=== PATIENT | female | born 1945 | race Caucasian/White ===

== ENCOUNTER 2023-07-19 20:38 | Inpatient (IN) | payer OTHER, SELFPAY ==
[2023-07-20 00:33] VITALS: BMI 27.4
--- NOTE | 2023-07-20 02:33 | PC.ADMIT ---
A white, Bulgarian-speaking female, aged 77 years was [facility] to [facility] at 205 following referral from [facility] and [facility]. Pt is unknown to [facility], but has a history of admissions at [place] [id number], multiple admissions, most recent in 03/[address] [facility] in 2019. Pt reported a long history of depression with past suicide attempts and inpatient psychiatric admissions. Pt presented at [facility] on 07/17/23 after being transferred from [facility]. Pt presented with increased SI and thoughts of . Pt stated I think abut all the time. My health issues and pain make it even worse. I just need help or else I will overdose on my pills. Pt is admitted with a diagnosis of depressive d/o and borderline personality d/o. Pt lives alone and at times has conflict with her adult children b/c feeling like I'm in the way or not important enough. Pt was cooperative and pleasant upon arriving, but had received medication for pain prior to transfer to [facility]. Pt climbed into bed not long after arrival and fell deeply asleep. Pt denied current SI/HI, and AVH. Pt appears anxious and depressed but was unable to rate. Skin check done upon arrival. Pt has healed surgical scars on lower back from surgery in past six months. Pt c/o back pain / upon arrival. MEIER was positive for THC and opioids. Pt reports using 1/2 THC gummy, 1-2 drinks Etoh, and OTC Benadryl to help with insomnia and frequent awakening. Pt is positive for opioids b/c was given morphine prior to transport from [place] to [facility]. Medical issues include: chronic left knee pain, chronic back pain and recent history of surgery, Grave's disease, intention tremor, neurogenic claudication, Parkinson's disease, TBI/ post-concusion syndrome, REM sleep d/o, restless leg syndrome, sciatica, syncope, urinary incontinence, benign paroxysmal vertigo. Pt is a high fall risk, but ambulates w/o device. [id number] done, admission orders obtained, initial treatment plan is done, but needs to be signed. Pt still needs to do safety tool and sign.
[2023-07-20 08:56] VITALS: BP 128/90; PULSE 69; RESP 16; TEMP 36.2; O2SAT 98
[2023-07-20 09:06] LABS: Estimated Average Glucose 111 mg/dL; Hemoglobin A1c % 5.5 % (<6.0)
[2023-07-20 09:28] LABS: Alanine Aminotransferase 10 U/L (0-31); Albumin Level 4.1 g/dL (3.5-5.0); Alkaline Phosphatase 125 U/L (39-117); Anion Gap 12 (12-20); Aspartate Amino Transferase 18 U/L (5-31); Bilirubin Total 0.6 mg/dL (0.0-1.0); Blood Urea Nitrogen 14 mg/dL (9-16); Calcium 9.8 mg/dL (8.4-10.2); Carbon Dioxide 28 mmol/L (22-29); Chloride 107 mmol/L (96-108); Cholesterol 262 mg/dL (<200); Creatinine Clr Calc Pharmacy 56.2; Estimated Glomerular Filt Rate > 60; Glucose Fasting 90 mg/dL (60-99); HDL Cholesterol 52 mg/dL (>40); LDL Cholesterol Calculated 164 mg/dL (<100); Potassium 4.1 mmol/L (3.3-5.1); Sodium 143 mmol/L (135-145); Triglycerides 231 mg/dL (<150)
[2023-07-20 09:46] LABS: Thyroid Stimulating Hormone 1.72 uIU/mL (0.32-4.0)
[2023-07-20 09:58] LABS: Folate 8.6 ng/mL (> or = 4.0); Vitamin B12 294 pg/mL (200-900)
--- NOTE | 2023-07-20 12:39 | P.CONHOSP_ITS ---
History of Present Illness Data of Consult Service Date: 07/20/23 Primary Care Provider: Unknown Physician HPI Reason for consult: Admission H&P Pt is a 77-year-old female with a PMH significant for?chronic lower back and hip pain, hx of squamous cell carcinoma, Parkinsonism, MDD, and borderline personality disorder who is admitted to M5 psychiatry unit for increasing depression with SI with a plan to overdose on medication. Medical consult for admission H&P. Patient complains of severe left hip pain since having had lower back surgery in February for chronic lower back pain. Pt is unsure whether hip pain resulted from surgery or her lower back pain masked her hip pain. Claims she has spoken to her surgeon about these symptoms but was told there was nothing they could do about it. Has also seen her PCP and reports has an appointment to see an orthopedist on 08/01/2023. Patient is emotionally labile, and begins crying when told such hip pain is usually treated outpatient. She states she was told by her psychiatrist that she would be treated in the hospital for her?hip pain which is why she is here. The patient then shuts down after this and no longer participates in HPI/ROS, stating she feels ?completely fine and healthy.? Labs reviewed, significant for elevated triglycerides, total cholesterol, and LDL. Review of Systems 2 Review of Systems: Chronic left hip pain PMFSH Social History Household Members: None Housing: Unknown / Unable to assess Do you presently have visiting nurse or other home services: No Patient Tobacco Use Status: Never used Tobacco Smoked in Last 30 Days: No e-Cigarette/Vaping Use: Never Used Patient Interested in Nicotine Replacement: No (N/A) Patient Given Instructions on How to Stop Smoking: No (N/A) Use of substances other than those prescribed or required for medical reasons: Yes Substance Use Type: Marijuana Substance Use Frequency: Daily Last Used Substance: Unknown Currently Displaying Signs/Symptoms of Drug Intoxication Withdrawal: No Do you feel safe in your current relationship?: No Current Relationship Spiritual Healthcare Practices: Unknown; pt unable to participate due to mental status. Roman [employer] Healthcare Practices: Unknown; pt unable to participate due to mental status. Cultural Healthcare Practices: Unknown; pt unable to participate due to mental status. Advance Directives: Yes Advance Directives Information Provided: No Advance Directives on File: No Do you have thoughts of harming others: None Do you have a plan to hurt others: No Plan Recently lost weight without trying: Unsure How much weight loss: Unsure Nutrition Risks: No Nutritional Risk Patient : No : No Poor oral hygiene: No Meds Allergies Allergy/AdvReac Type Severity Reaction Status Date / Time Sulfa (Sulfonamide Allergy Intermediate Unknown Verified 07/20/23 00:30 Antibiotics) imipramine Allergy Unknown Verified 07/20/23 00:32 lithium AdvReac Mild Unknown Verified 07/20/23 00:32 Active Medications: Current Medications Acetaminophen (Acetaminophen 325 Mg Tablet) 650 mg PO Q6H PRN PRN Reason: Headache/Pain Mild Scale (1-3) Al Hydroxide/Mg Hydroxide (Magnesium Hydrox/Alum Hydrox 30 Ml Oral.Susp) 30 ml PO Q6H PRN PRN Reason: Heartburn/Nausea Hydroxyzine HCl (Hydroxyzine Hcl 25 Mg Tablet) 25 mg PO Q6H PRN PRN Reason: Anxiety Magnesium Hydroxide (Milk Of Magnesia 30 Ml Oral.Susp) 30 ml PO DAILY PRN PRN Reason: Constipation Trazodone HCl (Trazodone Hcl 50 Mg Tablet) 50 mg PO BEDTIME PRN PRN Reason: Insomnia Physical Exam 2 Vital Signs and Narrative: Vital Signs: Last Vital Signs Temp 97.1 F 07/20/23 08:56 Pulse 69 07/20/23 08:56 Resp 16 07/20/23 08:56 BP 128/90 H 07/20/23 08:56 Pulse Ox 98 07/20/23 08:56 O2 Del Method Room Air 07/20/23 08:56 BMI result Body Mass Index 27.4 Constitutional: Alert, in no acute distress. Mental Status: Oriented to person, place and time. Eyes: Pupils are equal, round, and reactive to light. Ear, Nose, and Throat: Oropharynx clear, mucous membranes moist. Ears and nose without deformities. Trachea midline. Respiratory: Clear to auscultation bilaterally. No wheezing, rales, or rhonchi. Cardiovascular: S1, S2 regular. No murmurs, rubs, or gallops. Gastrointestinal: Abdomen soft, non-tender, non-distended. Normal bowel sounds. Neurologic: Cranial nerves II-XII are grossly intact bilaterally. No focal neurological deficits. Moves all extremities spontaneously. Skin: No rashes or lesions noted. Musculoskeletal: Left hip tender to palpation. Slightly reduced active ROM secondary to pain. Lower back nontender to palpation. Extremities: No edema. Psychiatric: Emotionally labile. Results Labs 07/20/23 08:04 Labs: Laboratory Results - last 24 hr 07/20/23 08:04 Anion Gap 12 Estim Creat Clear Calc 56.2 Estimated GFR > 60 Fasting Glucose 90 Estimat Average Glucose 111 Hemoglobin A1c % 5.5 Calcium 9.8 Total Bilirubin 0.6 AST 18 ALT 10 Alkaline Phosphatase 125 H Total Protein 7.0 Albumin 4.1 Triglycerides 231 H Cholesterol 262 H LDL Cholesterol, Calc 164 H HDL Cholesterol 52 Vitamin B12 294 Folate 8.6 TSH 1.72 Assessment and Plan (1) Medical clearance for psychiatric admission: Status: Acute Plan Pt is a 77-year-old female with a PMH significant for?chronic lower back and hip pain, hx of squamous cell carcinoma, Parkinsonism, MDD, and borderline personality disorder who is admitted to [facility] psychiatry unit for increasing depression with SI with a plan to overdose on medication. Medical consult for admission H&P. Patient complains of severe left hip pain since having had lower back surgery in February for chronic lower back pain. Mood disorder Plan as per Psychiatry Chronic back and hip pain Patient complaining of left hip pain since back surgery in February Patient reports having spoken to both her surgeon and PCP, has ortho appointment on 08/01/2023 Will treat with naproxen 500 mg b.i.d. p.r.n. and Flexeril 5 mg p.o. t.i.d. p.r.n. Needs to follow-up outpatient with orthopedics Parkinsonism Patient reports being diagnosed with Parkinson's disease sometime ago Believes she was miss diagnosed and is no longer on any meds Pt otherwise does not appear to be on any home prescription medication. Thank you for allowing us to participate in the care of this patient. Signing off at this time. Please let us know if there are any acute complaints or questions.
--- NOTE | 2023-07-20 13:03 | P.HPPS_ITS ---
HPI Date of Service: 07/20/23 Chief Complaint: Major Depressive D/O, Borderline Personality D/O Sources of Information: patient interviewed, chart reviewed and crisis/core team assessment reviewed HPI Subjective Notes: Conditional Voluntary Healthcare Proxy: No Guardianship: No Medical Problems Affecting Mental Status: No Narrative: 77 yo female, sent in transfer from [facility] for SI, thoughts of dying, L Hip Pain. Pt reportedly lives alone and has conflict with her children. There is a long history of depression, as well as suicide attempts. Met with pt and Daryl MEHTA. Pt is angry and upset as she just had her physical exam by hospitalist team who told her they would not be addressing her hip pain. Asks to discharge this evening. When asked to explain further the issues she is struggling with so we may interviene appropriately, pt commented that she was not satisfied with this teletypewriter installer's volume of voice x 2. When this teletypewriter installer increased volume, pt was accusatory of being yelled at. She shared several instances of not being able to hear others when they talked and negative responses from friends, peers, professionals when she confronted them. This teletypewriter installer explained we were attempting to hear her issue with pain in an attempt to address this. She appears to have merged a previous interaction in another facility with our meeting today. She asked for a new provider which we will follow up with on Sunday. Pt reports severe hip pain- lateral, buttock area that radiates accross her back and she cannot walk well as her thighs ache. Consult via text to orthopedics- who suggest consult request from neuro spine, Sigifredo MARQUEZ which was ordered. Prior to consult, pain mgt addressed. Oxycodone and Flexeril are ordered. Pt reports she has taken both before with efficacy and tolerance. Pt reports several medication trials. Discussed a cymbalta low dose trial which she has taken and tolerated before for help with pain mgt. She is agreeable. Pt reports she has signed a three day notice on admission, however, one is not found in her record. Past Psychiatric History: IP: Mike PETERSON, [facility]- last admit 02/2023 [place] 2018 OP: Dr. Amor for psychotherapy and psychopharmacology-no TERA signed Trials: Several Valium, Ativan have helped. 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 Supports: son Eligio, son-in-law Jovanni Substance History: Denies Trauma History: Affirms Diagnostics Vital Signs (24Hr): Vital Signs - 24 hr 07/20/23 08:56 Temperature 97.1 F Pulse Rate 69 Respiratory Rate 16 Blood Pressure 128/90 H Pulse Oximetry 98 Oxygen Delivery Method Room Air BMI result Body Mass Index 27.4 Labs 07/20/23 08:04 Labs: Laboratory Results - last 48 hr 07/20/23 08:04 Sodium 143 Potassium 4.1 Chloride 107 Carbon Dioxide 28 Anion Gap 12 BUN 14 Creatinine 0.77 Estim Creat Clear Calc 56.2 Estimated GFR > 60 Fasting Glucose 90 Estimat Average Glucose 111 Hemoglobin A1c % 5.5 Calcium 9.8 Total Bilirubin 0.6 AST 18 ALT 10 Alkaline Phosphatase 125 H Total Protein 7.0 Albumin 4.1 Triglycerides 231 H Cholesterol 262 H LDL Cholesterol, Calc 164 H HDL Cholesterol 52 Vitamin B12 294 Folate 8.6 TSH 1.72 Meds/Allergies Allergies Allergies Allergy/AdvReac Type Severity Reaction Status Date / Time Sulfa (Sulfonamide Allergy Intermediate Unknown Verified 07/20/23 00:30 Antibiotics) imipramine Allergy Unknown Verified 07/20/23 00:32 lithium AdvReac Mild Unknown Verified 07/20/23 00:32 Mental Status Exam Mental Status Exam Patient Appearance: Appropriate Patient Orientation: Person, Place, Time and Situation Level of Consciousness: Awake and Alert Patient Behavior: Guarded, Talkative, Suspicious, Aggressive, Resistive to Care, Combative (verbally), Fatigued, Distractible, Good Eye Contact and Uncooperative Mood Description: Suspicious, Depressed, Hostile, Angry and Apprehensive Affect Description: Hostile Patient Cognition Impaired: No Ability to Follow Directions: Fair Speech Pattern: Spontaneous Speech Memory Description: Episodic Impaired Hallucinations: None Delusions: Not Present Perceptual Disturbances: Depersonalization and Derealization Thought Process: Distracted and Rumination Thought Content: positive for Circumstantial, positive for Perseveration and positive for Suicidal Ideation Depressive Symptoms: Increased Irritability and Thoughts of /Suicide Abnormal Motor Activity Signs and Symptoms: Agitation Judgement: Fair Assessment & Plan Assessment & Plan (1) PTSD (post-traumatic stress disorder): Status: Acute Code(s): F43.10 - Post-traumatic stress disorder, unspecified (2) Recurrent major depression: Status: Acute Code(s): F33.9 - Major depressive disorder, recurrent, unspecified (3) Borderline personality disorder: Status: Acute Code(s): F60.3 - Borderline personality disorder (4) Left hip pain: Status: Acute Code(s): M25.552 - Pain in left hip Plan 77 yo female, history of PTSD, Recurrent Major Depression, Borderline Personality, L Hip Pain, sent in transfer from [facility] for evaluation and management of suicidality, depression and pain. Plan: Collateral contact-pt has not signed TERA at this time with family and providers. L Hip Pain Mgt -Flexeril, Oxycodone prn until consultation gives further guidance -Consult request from neuro spine, Sigifredo Coello per recommendation of orthopedics -Falls precautions Cymbalta 20 mg daily (pain focus) Pt believes she signed a three day notice on admission, however this is not included in her documents Encourage milieu participation. Pt requests provider change-will transfer to Dr. Harris on 07/23 Patient educated on: therapeutic strategies and medical condition Informed Consent: further education needed Reason for continued inpatient stay Substantial Risk for: harm to self, inability to function, rapid decompensation and med/psych decompensation Statement Statement: I have reviewed the history and physical and performed a pertinent examination on my patient. No changes have occurred unless specified. If the History and Physical was not performed prior to admission, the Hospitalist's service will be consulted for completing the admission physical. Time Spent With Patient Time: Total time managing care of this patient today ____ minutes.
[2023-07-20] MEDS: Cyclobenzaprine HCl 10 MG TABLET PO (17:20)
[2023-07-20 18:00] VITALS: BP 129/68; PULSE 71; TEMP 35.6; O2SAT 98
[2023-07-20] MEDS: traZODone HCL 50 MG TABLET PO (21:52)
[2023-07-20] MEDS: oxyCODONE HCl Immed Release 5 MG TABLET PO (21:53)
--- NOTE | 2023-07-21 07:51 | P.PNPSI_ITS ---
Subjective Subjective Date of Service: 07/21/23 Reason For Visit: Major Depressive D/O, Borderline Personality D/O Subjective Notes: Mckinely Warning and 3 Day Interim History: I'm having a tough time. Regrets coming here at the advice of her outpatient psychiatrist. Has multiple complaints about the unit. Wants to get numbers from her phone. Feels that checks are not done properly, states she didn't get promised orthopedic eval. Signed a 3 day notice. Some sleep disturbance due to hip pain. Medication Compliance: Yes Side effects from medications: No Attending Groups: No Review of Systems Acute medical concerns: No Medical Review of Systems: unchanged Mental Status Exam Mental Status Exam Patient Appearance: Well Grooomed Patient Orientation: Person, Place, Time and Situation Level of Consciousness: Awake Patient Behavior: Appropriate Mood Description: Depressed ( not good ) Affect Description: Depressed Patient Cognition Impaired: No Ability to Follow Directions: Good Speech Pattern: Clear and Spontaneous Speech Memory Description: Intact Hallucinations: None Delusions: Not Present Thought Process: Intact Thought Content: positive for Suicidal Ideation (evasive about plan, states she has SI chronically. States she will not harm self here in the hospital) Depressive Symptoms: Difficulty Sleeping, Muscle Pain and Thoughts of /Suicide Judgement: Fair Diagnostics Vital Signs (24Hr): Vital Signs - 24 hr 07/20/23 08:56 07/20/23 18:00 Temperature 97.1 F 96.1 F L Pulse Rate 69 71 Respiratory Rate 16 Blood Pressure 128/90 H 129/68 Pulse Oximetry 98 98 Oxygen Delivery Method Room Air Room Air BMI result Body Mass Index 27.4 Labs 07/20/23 08:04 Labs: Laboratory Results - last 48 hr 07/20/23 08:04 Sodium 143 Potassium 4.1 Chloride 107 Carbon Dioxide 28 Anion Gap 12 BUN 14 Creatinine 0.77 Estim Creat Clear Calc 56.2 Estimated GFR > 60 Fasting Glucose 90 Estimat Average Glucose 111 Hemoglobin A1c % 5.5 Calcium 9.8 Total Bilirubin 0.6 AST 18 ALT 10 Alkaline Phosphatase 125 H Total Protein 7.0 Albumin 4.1 Triglycerides 231 H Cholesterol 262 H LDL Cholesterol, Calc 164 H HDL Cholesterol 52 Vitamin B12 294 Folate 8.6 TSH 1.72 Medications Medications Current Medications Acetaminophen (Acetaminophen 325 Mg Tablet) 650 mg PO Q6H PRN PRN Reason: Headache/Pain Mild Scale (1-3) Al Hydroxide/Mg Hydroxide (Magnesium Hydrox/Alum Hydrox 30 Ml Oral.Susp) 30 ml PO Q6H PRN PRN Reason: Heartburn/Nausea Cyclobenzaprine HCl (Cyclobenzaprine Hcl 5 Mg Tablet) 5 mg PO TID PRN PRN Reason: Hip pain Duloxetine HCl (Duloxetine Hcl 20 Mg Capsule.Dr) 20 mg PO DAILY MIMI Hydroxyzine HCl (Hydroxyzine Hcl 25 Mg Tablet) 25 mg PO Q6H PRN PRN Reason: Anxiety Magnesium Hydroxide (Milk Of Magnesia 30 Ml Oral.Susp) 30 ml PO DAILY PRN PRN Reason: Constipation Naproxen (Naproxen 500 Mg Tablet) 500 mg PO BIDWM PRN PRN Reason: Pain, Moderate(Pain Scale 4-6) Stop: 08/03/23 15:44 Trazodone HCl (Trazodone Hcl 50 Mg Tablet) 50 mg PO BEDTIME PRN PRN Reason: Insomnia Last Admin: 07/20/23 21:52 Dose: 50 mg Allergies Allergies Allergy/AdvReac Type Severity Reaction Status Date / Time Sulfa (Sulfonamide Allergy Intermediate Unknown Verified 07/20/23 00:30 Antibiotics) imipramine Allergy Unknown Verified 07/20/23 00:32 lithium AdvReac Mild Unknown Verified 07/20/23 00:32 Assessment & Plan Assessment & Plan (1) PTSD (post-traumatic stress disorder): Status: Acute Code(s): F43.10 - Post-traumatic stress disorder, unspecified Assessment and Plan: monitor for symptoms (2) Recurrent major depression: Status: Acute Code(s): F33.9 - Major depressive disorder, recurrent, unspecified Assessment and Plan: cymbalta just started, increase as tolerated (3) Borderline personality disorder: Status: Acute Code(s): F60.3 - Borderline personality disorder Assessment and Plan: Clarify expectations, clear boundaries and follow through on plans. (4) Left hip pain: Status: Acute Code(s): M25.552 - Pain in left hip Assessment and Plan: Flexeril and tylenol, consider lidocaine patch (5) Medical clearance for psychiatric admission: Status: Acute Code(s): Z00.8 - Encounter for other general examination Plan 77 yo female, history of PTSD, Recurrent Major Depression, Borderline Personality, L Hip Pain, sent in transfer from [facility] for evaluation and management of suicidality, depression and pain. Plan: Collateral contact-pt has not signed TERA at this time with family and providers. L Hip Pain Mgt -Flexeril, Oxycodone prn until consultation gives further guidance -Consult request from neuro spine, Sigifredo Coello per recommendation of orthopedics -Falls precautions Cymbalta 20 mg daily (pain focus) Pt believes she signed a three day notice on admission, however this is not included in her documents Encourage milieu participation. Pt requests provider change-will transfer to Dr. Harris on 07/23 Reason for continued inpatient stay Substantial Risk for: harm to self Time Spent With Patient Time: Total time managing care of this patient today ____ minutes.
[2023-07-21 07:55] VITALS: BP 137/78; PULSE 66; RESP 18; TEMP 35.9; O2SAT 100
[2023-07-21] MEDS: hydrOXYzine HCL 25 MG TABLET PO (09:19)
[2023-07-21] MEDS: DULoxetine HCl 20 MG CAPSULE.DR PO (09:19)
[2023-07-21] MEDS: Cyclobenzaprine HCl 5 MG TABLET PO (09:20)
[2023-07-21] MEDS: Milk of Magnesia 30 ML ORAL.SUSP PO (09:23)
[2023-07-21] MEDS: Magnesium Hydrox/Alum Hydrox 30 ML ORAL.SUSP PO (14:43)
[2023-07-21 16:55] VITALS: BP 135/82; PULSE 70; RESP 16; TEMP 36.1; O2SAT 96
[2023-07-22 07:55] VITALS: BP 114/67; PULSE 63; RESP 18; TEMP 36.3; O2SAT 97
[2023-07-22] MEDS: NaPROXEN 500 MG TABLET PO (08:40)
[2023-07-22] MEDS: Cyclobenzaprine HCl 5 MG TABLET PO ×2 (08:40→20:47)
[2023-07-22] MEDS: DULoxetine HCl 20 MG CAPSULE.DR PO (08:41)
[2023-07-22] MEDS: hydrOXYzine HCL 25 MG TABLET PO ×2 (08:41→20:48)
[2023-07-22] MEDS: Milk of Magnesia 30 ML ORAL.SUSP PO (08:57)
--- NOTE | 2023-07-22 09:23 | HO.PSYCHPN ---
Subjective Subjective Date of Service: 07/22/23 Reason For Visit: Major Depressive D/O, Borderline Personality D/O Subjective Notes: Conditional Voluntary Guardianship: No Medical Problems Affecting Mental Status: No Interim History: Sitting in common areas but not interacting much. Reports eating and sleeping OK. Hearing is a barrier to interactions. Complaining of constipation. Medication Compliance: Yes Side effects from medications: No Attending Groups: Intermittent Review of Systems Acute medical concerns: No Medical Review of Systems: unchanged Mental Status Exam Mental Status Exam Patient Appearance: Well Grooomed (in hospital garb) Patient Orientation: Person, Place, Time and Situation Level of Consciousness: Alert Patient Behavior: Appropriate Mood Description: Calm Affect Description: Cheerful Patient Cognition Impaired: No Ability to Follow Directions: Good Speech Pattern: Clear Memory Description: Intact Hallucinations: None Delusions: Not Present Thought Process: Linear Thought Content: positive for Suicidal Ideation (chronic SI.. No current intent or plan) Depressive Symptoms: Increased Anxiety and Difficulty Sleeping Judgement: Fair Diagnostics Vital Signs (24Hr): Vital Signs - 24 hr 07/21/23 16:55 07/22/23 07:55 Temperature 96.9 F 97.3 F Pulse Rate 70 63 Respiratory Rate 16 18 Blood Pressure 135/82 114/67 Pulse Oximetry 96 97 Oxygen Delivery Method Room Air Room Air BMI result Body Mass Index 27.4 Labs 07/20/23 08:04 Medications Medications Current Medications Acetaminophen (Acetaminophen 325 Mg Tablet) 650 mg PO Q6H PRN PRN Reason: Headache/Pain Mild Scale (1-3) Al Hydroxide/Mg Hydroxide (Magnesium Hydrox/Alum Hydrox 30 Ml Oral.Susp) 30 ml PO Q6H PRN PRN Reason: Heartburn/Nausea Last Admin: 07/21/23 14:43 Dose: 30 ml Cyclobenzaprine HCl (Cyclobenzaprine Hcl 5 Mg Tablet) 5 mg PO TID PRN PRN Reason: Hip pain Last Admin: 07/22/23 08:40 Dose: 5 mg Duloxetine HCl (Duloxetine Hcl 20 Mg Capsule.Dr) 20 mg PO DAILY MIMI Last Admin: 07/22/23 08:41 Dose: 20 mg Hydroxyzine HCl (Hydroxyzine Hcl 25 Mg Tablet) 25 mg PO Q6H PRN PRN Reason: Anxiety Last Admin: 07/22/23 08:41 Dose: 25 mg Magnesium Hydroxide (Milk Of Magnesia 30 Ml Oral.Susp) 30 ml PO DAILY PRN PRN Reason: Constipation Last Admin: 07/22/23 08:57 Dose: 30 ml Naproxen (Naproxen 500 Mg Tablet) 500 mg PO BIDWM PRN PRN Reason: Pain, Moderate(Pain Scale 4-6) Stop: 08/03/23 15:44 Last Admin: 07/22/23 08:40 Dose: 500 mg Trazodone HCl (Trazodone Hcl 50 Mg Tablet) 50 mg PO BEDTIME PRN PRN Reason: Insomnia Last Admin: 07/20/23 21:52 Dose: 50 mg Allergies Allergies Allergy/AdvReac Type Severity Reaction Status Date / Time Sulfa (Sulfonamide Allergy Intermediate Unknown Verified 07/20/23 00:30 Antibiotics) imipramine Allergy Unknown Verified 07/20/23 00:32 lithium AdvReac Mild Unknown Verified 07/20/23 00:32 Assessment & Plan Assessment & Plan (1) PTSD (post-traumatic stress disorder): Status: Acute Code(s): F43.10 - Post-traumatic stress disorder, unspecified Assessment and Plan: monitor for symptoms (2) Recurrent major depression: Status: Acute Code(s): F33.9 - Major depressive disorder, recurrent, unspecified Assessment and Plan: cymbalta just started, increase as tolerated (3) Borderline personality disorder: Status: Acute Code(s): F60.3 - Borderline personality disorder Assessment and Plan: Clarify expectations, clear boundaries and follow through on plans. (4) Left hip pain: Status: Acute Code(s): M25.552 - Pain in left hip Assessment and Plan: Flexeril and tylenol, consider lidocaine patch (5) Medical clearance for psychiatric admission: Status: Acute Code(s): Z00.8 - Encounter for other general examination Plan 77 yo female, history of PTSD, Recurrent Major Depression, Borderline Personality, L Hip Pain, sent in transfer from [facility] for evaluation and management of suicidality, depression and pain. Plan: Collateral contact-pt has not signed TERA at this time with family and providers. L Hip Pain Mgt -Flexeril, Oxycodone prn until consultation gives further guidance -Consult request from neuro spine, Sigifredo Coello per recommendation of orthopedics -Falls precautions Cymbalta 20 mg daily (pain focus) Pt believes she signed a three day notice on admission, however this is not included in her documents Encourage milieu participation. Pt requests provider change-will transfer to Dr. Harris on 07/23 07/22: Add colace. Cymbalta just started, increase as tolerated Reason for continued inpatient stay Substantial Risk for: harm to self Time Spent With Patient Time: Total time managing care of this patient today ____ minutes.
[2023-07-22] MEDS: Docusate Sodium 100 MG CAPSULE PO ×2 (12:08→20:48)
[2023-07-22 18:00] VITALS: BP 147/67; PULSE 74; RESP 16; TEMP 36; O2SAT 98
[2023-07-23 08:20] VITALS: BP 133/70; PULSE 64; RESP 18; TEMP 36.1; O2SAT 98
[2023-07-23] MEDS: Cyclobenzaprine HCl 5 MG TABLET PO (08:29)
[2023-07-23] MEDS: hydrOXYzine HCL 25 MG TABLET PO (08:29)
[2023-07-23] MEDS: DULoxetine HCl 20 MG CAPSULE.DR PO (08:29)
[2023-07-23] MEDS: Docusate Sodium 100 MG CAPSULE PO ×2 (08:30→21:45)
[2023-07-23] MEDS: NaPROXEN 500 MG TABLET PO (08:30)
--- NOTE | 2023-07-23 09:43 | P.PNPSI_ITS ---
Subjective Subjective Date of Service: 07/23/23 Reason For Visit: Major Depressive D/O, Borderline Personality D/O Interim History: met with patient; discussed with team Discussed history in detail, including recent events and patient's mood and chronic SI. She reports that she deals with suicidal ideation every day and has done so for over a decade. She says sometimes the SI gets more intense than others but this is what is like for her at baseline, despite many medication trials and it something that she has learned to live with and deal with on her own. She reports that she was really upset with herself for something she said to her daughter but denies that she was ever getting close to actually harming herself and that comments made in the emergency room were misconstrued. Patient discussed in detail her historically troubled relationship with her daughter. It remains difficult for her to accept that they have struggled to get along for such a long time but she says mostly she is growing to understand that that is just how some relationships go. She understands that it would cause tremendous emotional pain for her daughter, son were she to end her life and knows that despite chronic SI, she will not take her own life. Patient also shared about some of her other ways she is cope with her own stress, often living alone; she has hiked the [facility] [place] by herself, lived in [place] by herself, and until recently [place] for motorcycle and is able to disassemble and repair a motorcycle engine. 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 Patient is considering getting a camper and hitting it to her car and traveling the [place], camping as she goes. Patient discussed history of struggles with her chronic back pain. She had back/spinal surgery this past February which relieved lower back pain, however subsequently she developed bilateral hip pain which has been debilitating. There has been a back and forth between her PCP and a initial spinal surgeon; finally she got appointment with in [facility] for July 31. Patient says she feels that she can endure this chronic pain, something she has been dealing with for months, until this appointment. She is getting some relief from Flexeril and naproxen which were added this admission. Patient is on a 3 day notice. Initially she wanted to discharge but after discussion, feels it would be helpful to stay and see if instructional writer can help with medications that could help sleep. Diagnostics Vital Signs (24Hr): Vital Signs - 24 hr 07/22/23 18:00 07/23/23 08:20 Temperature 96.8 F 97.0 F Pulse Rate 74 64 Respiratory Rate 16 18 Blood Pressure 147/67 H 133/70 Pulse Oximetry 98 98 Oxygen Delivery Method Room Air BMI result Body Mass Index 27.4 Labs 07/20/23 08:04 Medications Medications Current Medications Acetaminophen (Acetaminophen 325 Mg Tablet) 650 mg PO Q6H PRN PRN Reason: Headache/Pain Mild Scale (1-3) Al Hydroxide/Mg Hydroxide (Magnesium Hydrox/Alum Hydrox 30 Ml Oral.Susp) 30 ml PO Q6H PRN PRN Reason: Heartburn/Nausea Last Admin: 07/21/23 14:43 Dose: 30 ml Cyclobenzaprine HCl (Cyclobenzaprine Hcl 5 Mg Tablet) 5 mg PO TID PRN PRN Reason: Hip pain Last Admin: 07/23/23 08:29 Dose: 5 mg Docusate Sodium (Docusate Sodium 100 Mg Capsule) 100 mg PO BID MIMI Last Admin: 07/23/23 08:30 Dose: 100 mg Duloxetine HCl (Duloxetine Hcl 20 Mg Capsule.Dr) 20 mg PO DAILY MIMI Last Admin: 07/23/23 08:29 Dose: 20 mg Hydroxyzine HCl (Hydroxyzine Hcl 25 Mg Tablet) 25 mg PO Q6H PRN PRN Reason: Anxiety Last Admin: 07/23/23 08:29 Dose: 25 mg Magnesium Hydroxide (Milk Of Magnesia 30 Ml Oral.Susp) 30 ml PO DAILY PRN PRN Reason: Constipation Last Admin: 07/22/23 08:57 Dose: 30 ml Naproxen (Naproxen 500 Mg Tablet) 500 mg PO BIDWM PRN PRN Reason: Pain, Moderate(Pain Scale 4-6) Stop: 08/03/23 15:44 Last Admin: 07/23/23 08:30 Dose: 500 mg Trazodone HCl (Trazodone Hcl 50 Mg Tablet) 50 mg PO BEDTIME PRN PRN Reason: Insomnia Last Admin: 07/20/23 21:52 Dose: 50 mg Allergies Allergies Allergy/AdvReac Type Severity Reaction Status Date / Time Sulfa (Sulfonamide Allergy Intermediate Unknown Verified 07/20/23 00:30 Antibiotics) imipramine Allergy Unknown Verified 07/20/23 00:32 lithium AdvReac Mild Unknown Verified 07/20/23 00:32 Assessment & Plan Assessment & Plan (1) Recurrent major depression: Qualifiers: Active/Remission status: currently active Major depression episode severity: severe Psychotic features: without psychotic features Qualified Code(s): F33.2 - Major depressive disorder, recurrent severe without psychotic features Status: Acute Code(s): F33.9 - Major depressive disorder, recurrent, unspecified Assessment and Plan: cymbalta just started, increase as tolerated (2) PTSD (post-traumatic stress disorder): Status: Acute Code(s): F43.10 - Post-traumatic stress disorder, unspecified Assessment and Plan: monitor for symptoms (3) Borderline personality disorder: Status: Acute Code(s): F60.3 - Borderline personality disorder Assessment and Plan: Clarify expectations, clear boundaries and follow through on plans. (4) Left hip pain: Status: Acute Code(s): M25.552 - Pain in left hip Assessment and Plan: Flexeril and tylenol, consider lidocaine patch (5) Medical clearance for psychiatric admission: Status: Acute Code(s): Z00.8 - Encounter for other general examination Plan 77 yo female, history of PTSD, Recurrent Major Depression, Borderline Personality, L Hip Pain, sent in transfer from [facility] for evaluation and management of suicidality, depression and pain. Hospital course: 07/22: Add colace. Cymbalta just started, increase as tolerated iscussed history in detail, including recent events and patient's mood and chronic SI. She reports that she deals with suicidal ideation every day and has done so for over a decade. She says sometimes the SI gets more intense than others but this is what is like for her at baseline, despite many medication trials and it something that she has learned to live with and deal with on her own. She reports that she was really upset with herself for something she said to her daughter but denies that she was ever getting close to actually harming herself and that comments made in the emergency room were misconstrued. Patient discussed in detail her historically troubled relationship with her daughter. It remains difficult for her to accept that they have struggled to get along for such a long time but she says mostly she is growing to understand that that is just how some relationships go. She understands that it would cause tremendous emotional pain for her daughter, son were she to end her life and knows that despite chronic SI, she will not take her own life. Patient also shared about some of her other ways she is cope with her own stress, often living alone; she has hiked the [facility] by herself, lived in [place] by herself, and until recently [place] for motorcycle and is able to disassemble and repair a motorcycle engine. 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 Patient is considering getting a camper and hitting it to her car and traveling the [place], camping as she goes. Patient discussed history of struggles with her chronic back pain. She had back/spinal surgery this past February which relieved lower back pain, however subsequently she developed bilateral hip pain which has been debilitating. There has been a back and forth between her PCP and a initial spinal surgeon; finally she got appointment with in [facility] for July 31. Patient says she feels that she can endure this chronic pain, something she has been dealing with for months, until this appointment. She is getting some relief from Flexeril and naproxen which were added this admission. Patient is on a 3 day notice. Initially she wanted to discharge but after discussion, feels it would be helpful to stay and see if instructional writer can help with medications that could help sleep. Discussed list of medications the patient has tried and they are numerous. Says her outpatient provider will not give her any benzodiazepines because of her age. Patient denies any history at all of drug or alcohol abuse. formulation: Patient with long history of refractory depression; per history, symptoms are complicated by personality disorder, PTSD. Patient has chronic daily SI and has for over a decade; has history psychiatric hospitalizations but not for years. Patient reports she has learned to cope with her chronic daily SI and would never hurt herself, citing love for her children as a protective factor. Plan: 3 day Cymbalta 20 mg daily Will schedule trazodone 50 mg q.h.s. with additional p.r.n. Continue naproxen p.r.n. Continue Flexeril p.r.n. cancel consults for otho/neuro; here in the hospital ortho and neuro are unable to see patient and recommend following up with outpatient provider. Pain is improved with Flexeril. While pain remains she reports tolerable and that she can endure it until her orthopedic appointment on 07/31 Patient educated on: diagnosis, medication risk/benefits, substance abuse, therapeutic strategies and medical condition Informed Consent: understands Reason for continued inpatient stay Substantial Risk for: stable for discharge Time Spent With Patient Time: Total time managing care of this patient today ____ minutes.
--- NOTE | 2023-07-23 11:20 | PM.EVENT ---
Documented by User: Ilana Sheppard APRN 07/23/23 12:26 Event Note Date of Service: 07/23/23 Event Note: Sigifredo MARQUEZ refused to consult with pt as recommended by Elsie Evans of orthopedics on 07/20. As a result, orthopedic consult has been re-sent. Response from Elsie Evans of orthopedics. They will not consult on this patient as they believe her hip pain is a spinal issue and this is not an area which they consult on. Pt is referred to her surgeon for further consultation. Time Spent With Patient Time: Total time managing care of this patient today ____ minutes. Documented by User: Dewey Garica MD 08/17/23 11:43 Event Note Date of Service: 08/17/23
[2023-07-23 17:08] VITALS: BP 141/81; PULSE 66; RESP 16; TEMP 36.7; O2SAT 96
[2023-07-23] MEDS: traZODone HCL 50 MG TABLET PO (21:45)
[2023-07-24 08:00] VITALS: BP 122/76; PULSE 60; TEMP 36.1; O2SAT 98
[2023-07-24] MEDS: Docusate Sodium 100 MG CAPSULE PO ×2 (08:22→22:31)
[2023-07-24] MEDS: DULoxetine HCl 20 MG CAPSULE.DR PO (08:22)
[2023-07-24] MEDS: Cyclobenzaprine HCl 5 MG TABLET PO ×2 (08:31→22:31)
--- NOTE | 2023-07-24 09:48 | P.PNPSI_ITS ---
Subjective Subjective Date of Service: 07/24/23 Reason For Visit: Major Depressive D/O, Borderline Personality D/O Interim History: met with patient; discussed with team Patient reports not sleeping that well despite trazodone; agrees to go back down to 50. Mood remains depressed but no SI. Anxiety a little better. Patient is considering retracting her 3 day notice, feeling there is benefit to remaining on the unit, getting help with sleep, getting time to process emotions. Mental Status Exam Mental Status Exam Narrative: Pt is alert and oriented; behavior is cooperative, friendly and calm; patient is in minimal to moderate distress due to chronic hip pain; dressed in casual attire with combed hair but adequate hygiene; mood is described as ok and affect congruent; eye contact appropriate; Speech is normal rate, volume and prosody and not pressured; no psychomotor agitation/retardation present; thought process is organized and goal directed; Thought content is on tx, relationships; otherwise pertinent to relevant topics and without any delusional content, paranoid ideations or grandiosity; intermittent passive SI which is chronic; no HI. There is no evidence of perceptual disturbance. Patients insight and judgment appear intact. Diagnostics Vital Signs (24Hr): Vital Signs - 24 hr 07/23/23 17:08 07/24/23 08:00 Temperature 98.0 F 97.0 F Pulse Rate 66 60 Respiratory Rate 16 Blood Pressure 141/81 H 122/76 Pulse Oximetry 96 98 Oxygen Delivery Method Room Air Room Air BMI result Body Mass Index 27.4 Labs 07/20/23 08:04 Medications Medications Current Medications Acetaminophen (Acetaminophen 325 Mg Tablet) 650 mg PO Q6H PRN PRN Reason: Headache/Pain Mild Scale (1-3) Al Hydroxide/Mg Hydroxide (Magnesium Hydrox/Alum Hydrox 30 Ml Oral.Susp) 30 ml PO Q6H PRN PRN Reason: Heartburn/Nausea Last Admin: 07/21/23 14:43 Dose: 30 ml Cyclobenzaprine HCl (Cyclobenzaprine Hcl 5 Mg Tablet) 5 mg PO TID PRN PRN Reason: Hip pain Last Admin: 07/24/23 08:31 Dose: 5 mg Docusate Sodium (Docusate Sodium 100 Mg Capsule) 100 mg PO BID [facility] Last Admin: 07/24/23 08:22 Dose: 100 mg Duloxetine HCl (Duloxetine Hcl 20 Mg Capsule.) 20 mg PO DAILY MIMI Last Admin: 07/24/23 08:22 Dose: 20 mg Magnesium Hydroxide (Milk Of Magnesia 30 Ml Oral.Susp) 30 ml PO DAILY PRN PRN Reason: Constipation Last Admin: 07/22/23 08:57 Dose: 30 ml Naproxen (Naproxen 500 Mg Tablet) 500 mg PO BIDWM PRN PRN Reason: Pain, Moderate(Pain Scale 4-6) Stop: 08/03/23 15:44 Last Admin: 07/23/23 08:30 Dose: 500 mg Trazodone HCl (Trazodone Hcl 50 Mg Tablet) 50 mg PO BEDTIME PRN PRN Reason: Insomnia Last Admin: 07/20/23 21:52 Dose: 50 mg Trazodone HCl (Trazodone Hcl 50 Mg Tablet) 50 mg PO BEDTIME MIMI Last Admin: 07/23/23 21:45 Dose: 50 mg Allergies Allergies Allergy/AdvReac Type Severity Reaction Status Date / Time Sulfa (Sulfonamide Allergy Intermediate Unknown Verified 07/20/23 00:30 Antibiotics) imipramine Allergy Unknown Verified 07/20/23 00:32 lithium AdvReac Mild Unknown Verified 07/20/23 00:32 Assessment & Plan Assessment & Plan (1) Recurrent major depression: Qualifiers: Active/Remission status: currently active Major depression episode severity: severe Psychotic features: without psychotic features Qualified Code(s): F33.2 - Major depressive disorder, recurrent severe without psychotic features Status: Acute Code(s): F33.9 - Major depressive disorder, recurrent, unspecified Assessment and Plan: cymbalta just started, increase as tolerated (2) PTSD (post-traumatic stress disorder): Status: Acute Code(s): F43.10 - Post-traumatic stress disorder, unspecified Assessment and Plan: monitor for symptoms (3) Borderline personality disorder: Status: Acute Code(s): F60.3 - Borderline personality disorder Assessment and Plan: Clarify expectations, clear boundaries and follow through on plans. (4) Left hip pain: Status: Acute Code(s): M25.552 - Pain in left hip Assessment and Plan: Flexeril and tylenol, consider lidocaine patch (5) Medical clearance for psychiatric admission: Status: Acute Code(s): Z00.8 - Encounter for other general examination Plan 77 yo female, history of PTSD, Recurrent Major Depression, Borderline Personality, L Hip Pain, sent in transfer from [facility] for evaluation and management of suicidality, depression and pain. Hospital course: 07/22: Add colace. Janembalta just started, increase as tolerated iscussed history in detail, including recent events and patient's mood and chronic SI. She reports that she deals with suicidal ideation every day and has done so for over a decade. She says sometimes the SI gets more intense than others but this is what is like for her at baseline, despite many medication trials and it something that she has learned to live with and deal with on her own. She reports that she was really upset with herself for something she said to her daughter but denies that she was ever getting close to actually harming herself and that comments made in the emergency room were misconstrued. -Patient discussed in detail her historically troubled relationship with her daughter. It remains difficult for her to accept that they have struggled to get along for such a long time but she says mostly she is growing to understand that that is just how some relationships go. She understands that it would cause tremendous emotional pain for her daughter, son were she to end her life and knows that despite chronic SI, she will not take her own life. Patient also shared about some of her other ways she is cope with her own stress, often living alone; she has hiked the [facility] [place] by herself, lived in [place] by herself, and until recently [place] for motorcycle and is able to disassemble and repair a motorcycle engine. 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 Patient is considering getting a camper and hitting it to her car and traveling the [place], camping as she goes. -Patient discussed history of struggles with her chronic back pain. She had back/spinal surgery this past February which relieved lower back pain, however subsequently she developed bilateral hip pain which has been debilitating. There has been a back and forth between her PCP and a initial spinal surgeon; finally she got appointment with in [facility] for July 31. Patient says she feels that she can endure this chronic pain, something she has been dealing with for months, until this appointment. She is getting some relief from Flexeril and naproxen which were added this admission. Patient is on a 3 day notice. Initially she wanted to discharge but after discussion, feels it would be helpful to stay and see if information writer can help with medications that could help sleep. Discussed list of medications the patient has tried and they are numerous. Says her outpatient provider will not give her any benzodiazepines because of her age. Patient denies any history at all of drug or alcohol abuse. 07/24Patient reports not sleeping that well despite trazodone; agrees to go back down to 50. Mood remains depressed but no SI. Anxiety a little better. Patient is considering retracting her 3 day notice, feeling there is benefit to remaining on the unit, getting help with sleep, getting time to process emotions. formulation: Patient with long history of refractory depression; per history, symptoms are complicated by personality disorder, PTSD. Patient has chronic daily SI and has for over a decade; has history psychiatric hospitalizations but not for years. Patient reports she has learned to cope with her chronic daily SI and would never hurt herself, citing love for her children as a protective factor. Plan: 3 day Cymbalta 20 mg daily trazodone 50 mg q.h.s. with additional p.r.n. Continue naproxen p.r.n. Continue Flexeril p.r.n. cancel consults for otho/neuro; here in the hospital ortho and neuro are unable to see patient and recommend following up with outpatient provider. Pain is improved with Flexeril. While pain remains she reports tolerable and that she can endure it until her orthopedic appointment on 07/31. Patient educated on: diagnosis, medication risk/benefits and medical condition Informed Consent: understands Reason for continued inpatient stay Substantial Risk for: med/psych decompensation Time Spent With Patient Time: Total time managing care of this patient today ____ minutes.
[2023-07-24 16:45] VITALS: BP 117/69; PULSE 68; RESP 16; TEMP 36.6; O2SAT 97
[2023-07-24] MEDS: traZODone HCL 100 MG TABLET PO (22:30)
[2023-07-25] MEDS: DULoxetine HCl 20 MG CAPSULE.DR PO (08:06)
[2023-07-25] MEDS: Docusate Sodium 100 MG CAPSULE PO ×2 (08:07→21:59)
[2023-07-25 09:47] VITALS: BP 118/67; PULSE 60; RESP 16; TEMP 36.1; O2SAT 97
[2023-07-25] MEDS: cloNIDine HCL 0.1 MG TABLET 0.05 MG PO ×2 (09:56→22:01)
--- NOTE | 2023-07-25 13:09 | PC.NURSE ---
Pt retracted 3 day notice on 07/25/23 and signed another that is up on Sunday, 07/30. MD NOEMI, SW aware.
[2023-07-25] MEDS: Cyclobenzaprine HCl 5 MG TABLET PO (17:39)
--- NOTE | 2023-07-25 19:24 | HO.PSYCHPN ---
Subjective Subjective Date of Service: 07/25/23 Reason For Visit: Major Depressive D/O, Borderline Personality D/O Interim History: Met with patient; discussed with team Patient reports poor sleep and complains of long history of restless leg which has been interfering with sleep for while. However somewhat of improved mood. Clasp Machine Operator discussed ropinirole as a medication, going over risks/side effect profile which patient understood and agreed to continue (Also discussed combined risks/side effects of all medication regimen including that several of her medications can cause hypotension). Patient agrees to increase clonidine as a p.r.n. for anxiety because she thinks that the 0.05 mg May have helped a little bit and did not affect blood pressure or heart rate and she is hoping higher dose could be more beneficial. Also discussed history of nightmares that she often wakes up agitated. Discussed more of her history and relationships with her kids. Patient reports history of being intermittently dizzy; she said she has learned to live with it. Does not know what causes it and has made sure she is both eating and drinking adequately. As discussed with her outpatient provider. Mental Status Exam Mental Status Exam Narrative: Pt is alert and oriented; behavior is cooperative, friendly and calm; patient is in minimal to moderate distress due to chronic hip pain; dressed in casual attire with combed hair but adequate hygiene; mood is described as ok and affect congruent; eye contact appropriate; Speech is normal rate, volume and prosody and not pressured; no psychomotor agitation/retardation present; thought process is organized and goal directed; Thought content is on tx, relationships; otherwise pertinent to relevant topics and without any delusional content, paranoid ideations or grandiosity; intermittent passive SI which is chronic; no HI. There is no evidence of perceptual disturbance. Patients insight and judgment appear intact. Diagnostics Vital Signs (24Hr): Vital Signs - 24 hr 07/25/23 09:47 Temperature 97 F Pulse Rate 60 Respiratory Rate 16 Blood Pressure 118/67 Pulse Oximetry 97 Oxygen Delivery Method Room Air BMI result Body Mass Index 27.4 Labs 07/20/23 08:04 Medications Medications Current Medications Acetaminophen (Acetaminophen 325 Mg Tablet) 650 mg PO Q6H PRN PRN Reason: Headache/Pain Mild Scale (1-3) Al Hydroxide/Mg Hydroxide (Magnesium Hydrox/Alum Hydrox 30 Ml Oral.Susp) 30 ml PO Q6H PRN PRN Reason: Heartburn/Nausea Last Admin: 07/21/23 14:43 Dose: 30 ml Clonidine HCl (Clonidine Hcl 0.1 Mg Tablet) 0.1 mg PO Q4H PRN; Protocol PRN Reason: anxiety Clonidine HCl (Clonidine Hcl 0.1 Mg Tablet) 0.5 mg PO BEDTIME [facility]; Protocol Cyclobenzaprine HCl (Cyclobenzaprine Hcl 5 Mg Tablet) 5 mg PO TID PRN PRN Reason: Hip pain Last Admin: 07/25/23 17:39 Dose: 5 mg Docusate Sodium (Docusate Sodium 100 Mg Capsule) 100 mg PO BID [facility] Last Admin: 07/25/23 08:07 Dose: 100 mg Duloxetine HCl (Duloxetine Hcl 20 Mg Capsule.Dr) 20 mg PO DAILY [facility] Last Admin: 07/25/23 08:06 Dose: 20 mg Magnesium Hydroxide (Milk Of Magnesia 30 Ml Oral.Susp) 30 ml PO DAILY PRN PRN Reason: Constipation Last Admin: 07/22/23 08:57 Dose: 30 ml Naproxen (Naproxen 500 Mg Tablet) 500 mg PO BIDWM PRN PRN Reason: Pain, Moderate(Pain Scale 4-6) Stop: 08/03/23 15:44 Last Admin: 07/23/23 08:30 Dose: 500 mg Ropinirole HCl (Ropinirole Hcl 0.25 Mg Tablet) 0.25 mg PO BEDTIME [facility] Trazodone HCl (Trazodone Hcl 50 Mg Tablet) 50 mg PO BEDTIME PRN PRN Reason: Insomnia Last Admin: 07/20/23 21:52 Dose: 50 mg Trazodone HCl (Trazodone Hcl 50 Mg Tablet) 50 mg PO BEDTIME [facility] Allergies Allergies Allergy/AdvReac Type Severity Reaction Status Date / Time Sulfa (Sulfonamide Allergy Intermediate Unknown Verified 07/20/23 00:30 Antibiotics) imipramine Allergy Unknown Verified 07/20/23 00:32 lithium AdvReac Mild Unknown Verified 07/20/23 00:32 Assessment & Plan Assessment & Plan (1) Recurrent major depression: Qualifiers: Active/Remission status: currently active Major depression episode severity: severe Psychotic features: without psychotic features Qualified Code(s): F33.2 - Major depressive disorder, recurrent severe without psychotic features Status: Acute Code(s): F33.9 - Major depressive disorder, recurrent, unspecified Assessment and Plan: cymbalta just started, increase as tolerated (2) PTSD (post-traumatic stress disorder): Status: Acute Code(s): F43.10 - Post-traumatic stress disorder, unspecified Assessment and Plan: monitor for symptoms (3) Borderline personality disorder: Status: Acute Code(s): F60.3 - Borderline personality disorder Assessment and Plan: Clarify expectations, clear boundaries and follow through on plans. (4) Left hip pain: Status: Acute Code(s): M25.552 - Pain in left hip Assessment and Plan: Flexeril and tylenol, consider lidocaine patch (5) Medical clearance for psychiatric admission: Status: Acute Code(s): Z00.8 - Encounter for other general examination Plan 77 yo female, history of PTSD, Recurrent Major Depression, Borderline Personality, L Hip Pain, sent in transfer from [facility] for evaluation and management of suicidality, depression and pain. Hospital course: 07/22: Add colace. Cymbalta just started, increase as tolerated iscussed history in detail, including recent events and patient's mood and chronic SI. She reports that she deals with suicidal ideation every day and has done so for over a decade. She says sometimes the SI gets more intense than others but this is what is like for her at baseline, despite many medication trials and it something that she has learned to live with and deal with on her own. She reports that she was really upset with herself for something she said to her daughter but denies that she was ever getting close to actually harming herself and that comments made in the emergency room were misconstrued. -Patient discussed in detail her historically troubled relationship with her daughter. It remains difficult for her to accept that they have struggled to get along for such a long time but she says mostly she is growing to understand that that is just how some relationships go. She understands that it would cause tremendous emotional pain for her daughter, son were she to end her life and knows that despite chronic SI, she will not take her own life. Patient also shared about some of her other ways she is cope with her own stress, often living alone; she has hiked the [facility] by herself, lived in [place] by herself, and until recently [place] for motorcycle and is able to disassemble and repair a motorcycle engine. 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 Patient is considering getting a camper and hitting it to her car and traveling the [place], camping as she goes. -Patient discussed history of struggles with her chronic back pain. She had back/spinal surgery this past February which relieved lower back pain, however subsequently she developed bilateral hip pain which has been debilitating. There has been a back and forth between her PCP and a initial spinal surgeon; finally she got appointment with in [facility] for July 31. Patient says she feels that she can endure this chronic pain, something she has been dealing with for months, until this appointment. She is getting some relief from Flexeril and naproxen which were added this admission. Patient is on a 3 day notice. Initially she wanted to discharge but after discussion, feels it would be helpful to stay and see if tag writer can help with medications that could help sleep. Discussed list of medications the patient has tried and they are numerous. Says her outpatient provider will not give her any benzodiazepines because of her age. Patient denies any history at all of drug or alcohol abuse. 07/24Patient reports not sleeping that well despite trazodone; agrees to go back down to 50. Mood remains depressed but no SI. Anxiety a little better. Patient is considering retracting her 3 day notice, feeling there is benefit to remaining on the unit, getting help with sleep, getting time to process emotions. 07/25 Patient reports poor sleep and complains of long history of restless leg which has been interfering with sleep for while. However somewhat of improved mood. Clasp Machine Operator discussed ropinirole as a medication, going over risks/side effect profile which patient understood and agreed to continue (Also discussed combined risks/side effects of all medication regimen including that several of her medications can cause hypotension). Patient agrees to increase clonidine as a p.r.n. for anxiety because she thinks that the 0.05 mg May have helped a little bit and did not affect blood pressure or heart rate and she is hoping higher dose could be more beneficial. Also discussed history of nightmares that she often wakes up agitated. Discussed more of her history and relationships with her kids. formulation: Patient with long history of refractory depression; per history, symptoms are complicated by personality disorder, PTSD. Patient has chronic daily SI and has for over a decade; has history psychiatric hospitalizations but not for years. Patient reports she has learned to cope with her chronic daily SI and would never hurt herself, citing love for her children as a protective factor. Patient remains stable for discharge however there is significant therapeutic benefit to having a remain on the unit and help her with both anxiety and insomnia which could both significantly improved mood overall. Plan: CV (retracted 3 day) Start ropinirole 0.25 mg q.h.s. for restless leg Increase clonidine to 0.1 mg q.4 PRN for daytime anxiety Schedule clonidine 0.05 mg q.h.s. for insomnia; patient reports thinking too much while trying to relax; will keep this at lower dose to avoid hypotension given combine potential risks of medication regimen Continue Cymbalta 20 mg daily Continue trazodone 50 mg q.h.s. with additional p.r.n. Continue naproxen p.r.n. Continue Flexeril 5 mg p.r.n.; continue at current dose which she is finding helpful enough and does not want to risk side effect of raising dose cancel consults for otho/neuro; here in the hospital ortho and neuro are unable to see patient and recommend following up with outpatient provider. Pain is improved with Flexeril. While pain remains she reports tolerable and that she can endure it until her orthopedic appointment on 07/31. Patient educated on: diagnosis, medication risk/benefits, therapeutic strategies and medical condition Informed Consent: understands Reason for continued inpatient stay Substantial Risk for: stable for discharge Time Spent With Patient Time: Total time managing care of this patient today ____ minutes.
[2023-07-25] MEDS: rOPINIRole HCL 0.25 MG TABLET PO (21:59)
[2023-07-25 22:00] VITALS: BP 95/52; PULSE 61; TEMP 36.2
[2023-07-25] MEDS: traZODone HCL 50 MG TABLET PO (22:00)
[2023-07-26 07:00] VITALS: BMI 27.5
[2023-07-26] MEDS: Docusate Sodium 100 MG CAPSULE PO ×2 (08:10→20:20)
[2023-07-26] MEDS: DULoxetine HCl 20 MG CAPSULE.DR PO (08:10)
[2023-07-26 09:08] VITALS: BP 121/69; PULSE 60; RESP 16; TEMP 36.3; O2SAT 97
[2023-07-26] MEDS: Cyclobenzaprine HCl 5 MG TABLET PO (14:11)
--- NOTE | 2023-07-26 14:18 | P.PNPSI_ITS ---
Subjective Subjective Date of Service: 07/26/23 Reason For Visit: Major Depressive D/O, Borderline Personality D/O Interim History: Met with patient; discussed with team still not sleeping well; but no restless leg last night, either due to ropinirole or just intermittent nature of it pt discussed how she ruminates on things she feels guilty about, regrets...discussed med management and agrees to try low dose clonazepam to help he relax and sleep at night. discussed risks/side-effects of benzo's especially in her age group and she finds potential worth risk. Mental Status Exam Mental Status Exam Narrative: Pt is alert and oriented; behavior is cooperative, friendly and calm; patient is in minimal to moderate distress due to chronic hip pain; dressed in casual attire with combed hair but adequate hygiene; mood is described as ok and affect congruent; eye contact appropriate; Speech is normal rate, volume and prosody and not pressured; no psychomotor agitation/retardation present; thought process is organized and goal directed; Thought content is on tx, relationships; otherwise pertinent to relevant topics and without any delusional content, paranoid ideations or grandiosity; intermittent passive SI which is chronic; no HI. There is no evidence of perceptual disturbance. Patients insight and judgment appear intact. Diagnostics Vital Signs (24Hr): Vital Signs - 24 hr 07/25/23 22:00 07/26/23 09:08 Temperature 97.2 F 97.3 F Pulse Rate 61 60 Respiratory Rate 16 Blood Pressure 95/52 L 121/69 Pulse Oximetry 97 Oxygen Delivery Method Room Air BMI result Body Mass Index 27.5 Labs 07/20/23 08:04 Medications Medications Current Medications Acetaminophen (Acetaminophen 325 Mg Tablet) 650 mg PO Q6H PRN PRN Reason: Headache/Pain Mild Scale (1-3) Al Hydroxide/Mg Hydroxide (Magnesium Hydrox/Alum Hydrox 30 Ml Oral.Susp) 30 ml PO Q6H PRN PRN Reason: Heartburn/Nausea Last Admin: 07/21/23 14:43 Dose: 30 ml Clonidine HCl (Clonidine Hcl 0.1 Mg Tablet) 0.1 mg PO Q4H PRN; Protocol PRN Reason: anxiety Clonidine HCl (Clonidine Hcl 0.1 Mg Tablet) 0.05 mg PO BEDTIME [facility]; Protocol Last Admin: 07/25/23 22:01 Dose: 0.05 mg Cyclobenzaprine HCl (Cyclobenzaprine Hcl 5 Mg Tablet) 5 mg PO TID PRN PRN Reason: Hip pain Last Admin: 07/26/23 14:11 Dose: 5 mg Docusate Sodium (Docusate Sodium 100 Mg Capsule) 100 mg PO BID [facility]I Last Admin: 07/26/23 08:10 Dose: 100 mg Duloxetine HCl (Duloxetine Hcl 20 Mg Capsule.Dr) 20 mg PO DAILY [facility]I Last Admin: 07/26/23 08:10 Dose: 20 mg Magnesium Hydroxide (Milk Of Magnesia 30 Ml Oral.Susp) 30 ml PO DAILY PRN PRN Reason: Constipation Last Admin: 07/22/23 08:57 Dose: 30 ml Naproxen (Naproxen 500 Mg Tablet) 500 mg PO BIDWM PRN PRN Reason: Pain, Moderate(Pain Scale 4-6) Stop: 08/03/23 15:44 Last Admin: 07/23/23 08:30 Dose: 500 mg Ropinirole HCl (Ropinirole Hcl 0.25 Mg Tablet) 0.25 mg PO BEDTIME [facility] Last Admin: 07/25/23 21:59 Dose: 0.25 mg Trazodone HCl (Trazodone Hcl 50 Mg Tablet) 50 mg PO BEDTIME PRN PRN Reason: Insomnia Last Admin: 07/20/23 21:52 Dose: 50 mg Trazodone HCl (Trazodone Hcl 50 Mg Tablet) 50 mg PO BEDTIME [facility] Last Admin: 07/25/23 22:00 Dose: 50 mg Allergies Allergies Allergy/AdvReac Type Severity Reaction Status Date / Time Sulfa (Sulfonamide Allergy Intermediate Unknown Verified 07/20/23 00:30 Antibiotics) imipramine Allergy Unknown Verified 07/20/23 00:32 lithium AdvReac Mild Unknown Verified 07/20/23 00:32 Assessment & Plan Assessment & Plan (1) Recurrent major depression: Qualifiers: Active/Remission status: currently active Major depression episode severity: severe Psychotic features: without psychotic features Qualified Code(s): F33.2 - Major depressive disorder, recurrent severe without psychotic features Status: Acute Code(s): F33.9 - Major depressive disorder, recurrent, unspecified Assessment and Plan: cymbalta just started, increase as tolerated (2) PTSD (post-traumatic stress disorder): Status: Acute Code(s): F43.10 - Post-traumatic stress disorder, unspecified Assessment and Plan: monitor for symptoms (3) Borderline personality disorder: Status: Acute Code(s): F60.3 - Borderline personality disorder Assessment and Plan: Clarify expectations, clear boundaries and follow through on plans. (4) Left hip pain: Status: Acute Code(s): M25.552 - Pain in left hip Assessment and Plan: Flexeril and tylenol, consider lidocaine patch (5) Medical clearance for psychiatric admission: Status: Acute Code(s): Z00.8 - Encounter for other general examination Plan 77 yo female, history of PTSD, Recurrent Major Depression, Borderline Personality, L Hip Pain, sent in transfer from [facility] for evaluation and management of suicidality, depression and pain. Hospital course: 07/22: Add colace. Cymbalta just started, increase as tolerated iscussed history in detail, including recent events and patient's mood and chronic SI. She reports that she deals with suicidal ideation every day and has done so for over a decade. She says sometimes the SI gets more intense than others but this is what is like for her at baseline, despite many medication trials and it something that she has learned to live with and deal with on her own. She reports that she was really upset with herself for something she said to her daughter but denies that she was ever getting close to actually harming herself and that comments made in the emergency room were misconstrued. -Patient discussed in detail her historically troubled relationship with her daughter. It remains difficult for her to accept that they have struggled to get along for such a long time but she says mostly she is growing to understand that that is just how some relationships go. She understands that it would cause tremendous emotional pain for her daughter, son were she to end her life and knows that despite chronic SI, she will not take her own life. Patient also shared about some of her other ways she is cope with her own stress, often living alone; she has hiked the [facility] by herself, lived in [place] by herself, and until recently [place] for motorcycle and is able to disassemble and repair a motorcycle engine. 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 Patient is considering getting a camper and hitting it to her car and traveling the [place], camping as she goes. -Patient discussed history of struggles with her chronic back pain. She had back/spinal surgery this past February which relieved lower back pain, however subsequently she developed bilateral hip pain which has been debilitating. There has been a back and forth between her PCP and a initial spinal surgeon; finally she got appointment with in [facility] for July 31. Patient says she feels that she can endure this chronic pain, something she has been dealing with for months, until this appointment. She is getting some relief from Flexeril and naproxen which were added this admission. Patient is on a 3 day notice. Initially she wanted to discharge but after discussion, feels it would be helpful to stay and see if typewriter assembly and parts inspector can help with medications that could help sleep. Discussed list of medications the patient has tried and they are numerous. Says her outpatient provider will not give her any benzodiazepines because of her age. Patient denies any history at all of drug or alcohol abuse. 07/24Patient reports not sleeping that well despite trazodone; agrees to go back down to 50. Mood remains depressed but no SI. Anxiety a little better. Patient is considering retracting her 3 day notice, feeling there is benefit to remaining on the unit, getting help with sleep, getting time to process emotions. 07/25 Patient reports poor sleep and complains of long history of restless leg which has been interfering with sleep for while. However somewhat of improved mood. Stave Log Ripsaw Operator discussed ropinirole as a medication, going over risks/side effect profile which patient understood and agreed to continue (Also discussed combined risks/side effects of all medication regimen including that several of her medications can cause hypotension). Patient agrees to increase clonidine as a p.r.n. for anxiety because she thinks that the 0.05 mg May have helped a little bit and did not affect blood pressure or heart rate and she is hoping higher dose could be more beneficial. Also discussed history of nightmares that she often wakes up agitated. Discussed more of her history and relationships with her kids. 07/26 adding clonazpem 0.25mg reviewed bp/HR which remain WNL formulation: Patient with long history of refractory depression; per history, symptoms are complicated by personality disorder, PTSD. Patient has chronic daily SI and has for over a decade; has history psychiatric hospitalizations but not for years. Patient reports she has learned to cope with her chronic daily SI and would never hurt herself, citing love for her children as a protective factor. Patient remains stable for discharge however there is significant therapeutic benefit to having a remain on the unit and help her with both anxiety and insomnia which could both significantly improved mood overall. Plan: CV (retracted 3 day) Start ropinirole 0.25 mg q.h.s. for restless leg Increase clonidine to 0.1 mg q.4 PRN for daytime anxiety Schedule clonidine 0.05 mg q.h.s. for insomnia; patient reports thinking too much while trying to relax; will keep this at lower dose to avoid hypotension given combine potential risks of medication regimen Continue Cymbalta 20 mg daily Continue trazodone 50 mg q.h.s. with additional p.r.n. Continue naproxen p.r.n. Continue Flexeril 5 mg p.r.n.; continue at current dose which she is finding helpful enough and does not want to risk side effect of raising dose cancel consults for otho/neuro; here in the hospital ortho and neuro are unable to see patient and recommend following up with outpatient provider. Pain is improved with Flexeril. While pain remains she reports tolerable and that she can endure it until her orthopedic appointment on 07/31. Patient educated on: diagnosis and medication risk/benefits Informed Consent: understands Reason for continued inpatient stay Substantial Risk for: stable for discharge Time Spent With Patient Time: Total time managing care of this patient today ____ minutes.
[2023-07-26 17:30] VITALS: BP 104/63; PULSE 58; TEMP 36.6; O2SAT 95
[2023-07-26 17:42] VITALS: BP 104/63; PULSE 58; TEMP 36.6; O2SAT 95
[2023-07-26 20:20] VITALS: BP 109/68; PULSE 65
[2023-07-26] MEDS: cloNIDine HCL 0.1 MG TABLET 0.05 MG PO (20:20)
[2023-07-26] MEDS: clonazePAM 0.5 MG TABLET 0.25 MG PO (20:22)
[2023-07-26] MEDS: rOPINIRole HCL 0.25 MG TABLET PO (20:23)
[2023-07-26] MEDS: traZODone HCL 50 MG TABLET PO (20:40)
[2023-07-27 08:00] VITALS: BP 93/66; PULSE 72; RESP 16; TEMP 36.1; O2SAT 95
[2023-07-27] MEDS: Docusate Sodium 100 MG CAPSULE PO ×2 (08:44→21:45)
[2023-07-27] MEDS: DULoxetine HCl 20 MG CAPSULE.DR PO (08:44)
[2023-07-27] MEDS: Cyclobenzaprine HCl 5 MG TABLET PO (08:49)
--- NOTE | 2023-07-27 09:38 | HO.PSYCHPN ---
Subjective Subjective Date of Service: 07/27/23 Reason For Visit: Major Depressive D/O, Borderline Personality D/O Interim History: met with patient; discussed with team pt falling asleep well enough, but wakes up after 5 hours; however no restless leg 2 days in a row. Discussed prn's for anxiety and pt reports she took Ativan in the past which she found very helpful; no hx of drugs/alcohol. Cert Occupational Therapy Asst again discussed risks/side-effects of benzo's including risks associated w/ her demographic. Mood a little better and no SI. Mental Status Exam Mental Status Exam Narrative: Pt is alert and oriented; behavior is cooperative, friendly and calm; patient is in minimal to moderate distress due to chronic hip pain; dressed in casual attire with combed hair but adequate hygiene; mood is described as ok and affect congruent; eye contact appropriate; Speech is normal rate, volume and prosody and not pressured; no psychomotor agitation/retardation present; thought process is organized and goal directed; Thought content is on tx, relationships; otherwise pertinent to relevant topics and without any delusional content, paranoid ideations or grandiosity; intermittent passive SI which is chronic; no HI. There is no evidence of perceptual disturbance. Patients insight and judgment appear intact. Diagnostics Vital Signs (24Hr): Vital Signs - 24 hr 07/26/23 17:30 07/26/23 17:42 07/26/23 20:20 Temperature 97.8 F 97.8 F Pulse Rate 58 58 65 Respiratory Rate Blood Pressure 104/63 104/63 109/68 Pulse Oximetry 95 95 Oxygen Delivery Method Room Air Room Air 07/27/23 08:00 Temperature 96.9 F Pulse Rate 72 Respiratory Rate 16 Blood Pressure 93/66 Pulse Oximetry 95 Oxygen Delivery Method Room Air BMI result Body Mass Index 27.5 Labs 07/20/23 08:04 Medications Medications Current Medications Acetaminophen (Acetaminophen 325 Mg Tablet) 650 mg PO Q6H PRN PRN Reason: Headache/Pain Mild Scale (1-3) Al Hydroxide/Mg Hydroxide (Magnesium Hydrox/Alum Hydrox 30 Ml Oral.Susp) 30 ml PO Q6H PRN PRN Reason: Heartburn/Nausea Last Admin: 07/21/23 14:43 Dose: 30 ml Clonidine HCl (Clonidine Hcl 0.1 Mg Tablet) 0.1 mg PO Q4H PRN; Protocol PRN Reason: anxiety Clonidine HCl (Clonidine Hcl 0.1 Mg Tablet) 0.05 mg PO BEDTIME MIMI; Protocol Last Admin: 07/26/23 20:20 Dose: 0.05 mg Cyclobenzaprine HCl (Cyclobenzaprine Hcl 5 Mg Tablet) 5 mg PO TID PRN PRN Reason: Hip pain Last Admin: 07/27/23 08:49 Dose: 5 mg Docusate Sodium (Docusate Sodium 100 Mg Capsule) 100 mg PO BID MIMI Last Admin: 07/27/23 08:44 Dose: 100 mg Duloxetine HCl (Duloxetine Hcl 20 Mg Capsule.Dr) 20 mg PO DAILY MIMI Last Admin: 07/27/23 08:44 Dose: 20 mg Magnesium Hydroxide (Milk Of Magnesia 30 Ml Oral.Susp) 30 ml PO DAILY PRN PRN Reason: Constipation Last Admin: 07/22/23 08:57 Dose: 30 ml Naproxen (Naproxen 500 Mg Tablet) 500 mg PO BIDWM PRN PRN Reason: Pain, Moderate(Pain Scale 4-6) Stop: 08/03/23 15:44 Last Admin: 07/23/23 08:30 Dose: 500 mg Ropinirole HCl (Ropinirole Hcl 0.25 Mg Tablet) 0.25 mg PO BEDTIME MIMI Last Admin: 07/26/23 20:23 Dose: 0.25 mg Trazodone HCl (Trazodone Hcl 50 Mg Tablet) 50 mg PO BEDTIME PRN PRN Reason: Insomnia Last Admin: 07/20/23 21:52 Dose: 50 mg Trazodone HCl (Trazodone Hcl 50 Mg Tablet) 50 mg PO BEDTIME MIMI Last Admin: 07/26/23 20:40 Dose: 50 mg Allergies Allergies Allergy/AdvReac Type Severity Reaction Status Date / Time Sulfa (Sulfonamide Allergy Intermediate Unknown Verified 07/20/23 00:30 Antibiotics) imipramine Allergy Unknown Verified 07/20/23 00:32 lithium AdvReac Mild Unknown Verified 07/20/23 00:32 Assessment & Plan Assessment & Plan (1) Recurrent major depression: Qualifiers: Active/Remission status: currently active Major depression episode severity: severe Psychotic features: without psychotic features Qualified Code(s): F33.2 - Major depressive disorder, recurrent severe without psychotic features Status: Acute Code(s): F33.9 - Major depressive disorder, recurrent, unspecified Assessment and Plan: rakesh vazquez started, increase as tolerated (2) PTSD (post-traumatic stress disorder): Status: Acute Code(s): F43.10 - Post-traumatic stress disorder, unspecified Assessment and Plan: monitor for symptoms (3) Borderline personality disorder: Status: Acute Code(s): F60.3 - Borderline personality disorder Assessment and Plan: Clarify expectations, clear boundaries and follow through on plans. (4) Left hip pain: Status: Acute Code(s): M25.552 - Pain in left hip Assessment and Plan: Flexeril and tylenol, consider lidocaine patch (5) Medical clearance for psychiatric admission: Status: Acute Code(s): Z00.8 - Encounter for other general examination Plan 77 yo female, history of PTSD, Recurrent Major Depression, Borderline Personality, L Hip Pain, sent in transfer from [facility] for evaluation and management of suicidality, depression and pain. Hospital course: 07/22: Add colace. Cymbalta just started, increase as tolerated iscussed history in detail, including recent events and patient's mood and chronic SI. She reports that she deals with suicidal ideation every day and has done so for over a decade. She says sometimes the SI gets more intense than others but this is what is like for her at baseline, despite many medication trials and it something that she has learned to live with and deal with on her own. She reports that she was really upset with herself for something she said to her daughter but denies that she was ever getting close to actually harming herself and that comments made in the emergency room were misconstrued. -Patient discussed in detail her historically troubled relationship with her daughter. It remains difficult for her to accept that they have struggled to get along for such a long time but she says mostly she is growing to understand that that is just how some relationships go. She understands that it would cause tremendous emotional pain for her daughter, son were she to end her life and knows that despite chronic SI, she will not take her own life. Patient also shared about some of her other ways she is cope with her own stress, often living alone; she has hiked the [facility] [employer] by herself, lived in [place] by herself, and until recently [place] for motorcycle and is able to disassemble and repair a motorcycle engine. 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 Patient is considering getting a camper and hitting it to her car and traveling the [place], camping as she goes. -Patient discussed history of struggles with her chronic back pain. She had back/spinal surgery this past February which relieved lower back pain, however subsequently she developed bilateral hip pain which has been debilitating. There has been a back and forth between her PCP and a initial spinal surgeon; finally she got appointment with in [facility] for July 31. Patient says she feels that she can endure this chronic pain, something she has been dealing with for months, until this appointment. She is getting some relief from Flexeril and naproxen which were added this admission. Patient is on a 3 day notice. Initially she wanted to discharge but after discussion, feels it would be helpful to stay and see if com writer can help with medications that could help sleep. Discussed list of medications the patient has tried and they are numerous. Says her outpatient provider will not give her any benzodiazepines because of her age. Patient denies any history at all of drug or alcohol abuse. 07/24Patient reports not sleeping that well despite trazodone; agrees to go back down to 50. Mood remains depressed but no SI. Anxiety a little better. Patient is considering retracting her 3 day notice, feeling there is benefit to remaining on the unit, getting help with sleep, getting time to process emotions. 07/25 Patient reports poor sleep and complains of long history of restless leg which has been interfering with sleep for while. However somewhat of improved mood. Cert Occupational Therapy Asst discussed ropinirole as a medication, going over risks/side effect profile which patient understood and agreed to continue (Also discussed combined risks/side effects of all medication regimen including that several of her medications can cause hypotension). Patient agrees to increase clonidine as a p.r.n. for anxiety because she thinks that the 0.05 mg May have helped a little bit and did not affect blood pressure or heart rate and she is hoping higher dose could be more beneficial. Also discussed history of nightmares that she often wakes up agitated. Discussed more of her history and relationships with her kids. 07/26 adding clonazpem 0.25mg (discussed risks) reviewed bp/HR which remain WNL 07/27 No restless leg last night, hopefully due to ropinirole; patient not sure how low-dose clonazepam helped last night but reviewed PRNs for anxiety, clonidine/clonazepam and patient will see how they feel. Patient has had numerous medication trials over the years, including SSRIs/SNRIs, TCAs, mood stabilizers including lithium/lamictal, several antipsychotics... Therapy... (TMS??) None of which have given much benefit. She reports that Ativan did help; no drug or alcohol history at all. Cert Occupational Therapy Asst again discussed risks/side-effects of benzo's including risks associated w/ her demographic which patient fully understands feels that potential benefits outweigh these risks. Given that patient has had numerous medication trials with limited affect, she is in chronic pain, without any history of substance abuse, cognitively intact and long history of numerous accomplishments while living independently, com writer agrees that low-dose benzodiazepine is of low risk and at this time the potential benefit of reducing her chronic anxiety/ruminations outweighs the potential risk. Will increase Cymbalta to 30 mg not some much for depression/anxiety but for neuropathic pain. She is falling asleep better on current medication regimen. formulation: Patient with long history of refractory depression; per history, symptoms are complicated by personality disorder, PTSD. Patient has chronic daily SI and has for over a decade; has history psychiatric hospitalizations but not for years. Patient reports she has learned to cope with her chronic daily SI and would never hurt herself, citing love for her children as a protective factor. Patient remains stable for discharge however there is significant therapeutic benefit to having a remain on the unit and help her with both anxiety and insomnia which could both significantly improved mood overall. Plan: CV (retracted 3 day) Added clonazepam 0.25 mg b.i.d. p.r.n. for anxiety or insomnia; will increase to 0.5 mg if clinically indicated Continue ropinirole 0.25 mg q.h.s. for restless leg Increase clonidine to 0.1 mg q.4 PRN for daytime anxiety/insomnia Schedule clonidine 0.05 mg q.h.s. for insomnia; patient reports thinking too much while trying to relax; will keep this at lower dose to avoid hypotension given combine potential risks of medication regimen Increase Cymbalta 30 mg daily Continue trazodone 50 mg q.h.s. with additional p.r.n. Continue naproxen p.r.n. Continue Flexeril 5 mg p.r.n.; continue at current dose which she is finding helpful enough and does not want to risk side effect of raising dose cancel consults for otho/neuro; here in the hospital ortho and neuro are unable to see patient and recommend following up with outpatient provider. Pain is improved with Flexeril. While pain remains she reports tolerable and that she can endure it until her orthopedic appointment on 07/31. Patient educated on: diagnosis, medication risk/benefits and medical condition Informed Consent: understands Reason for continued inpatient stay Substantial Risk for: stable for discharge Time Spent With Patient Time: Total time managing care of this patient today ____ minutes.
[2023-07-27 20:24] VITALS: BP 102/63; PULSE 55; RESP 18; TEMP 36.2; O2SAT 98
[2023-07-27] MEDS: cloNIDine HCL 0.1 MG TABLET 0.05 MG PO (21:44)
[2023-07-27] MEDS: traZODone HCL 50 MG TABLET PO (21:45)
[2023-07-27] MEDS: rOPINIRole HCL 0.25 MG TABLET PO (21:45)
[2023-07-28 08:35] VITALS: BP 111/65; PULSE 60; RESP 18; TEMP 35.9; O2SAT 97
[2023-07-28] MEDS: DULoxetine HCl 30 MG CAPSULE.DR PO (08:38)
[2023-07-28] MEDS: Docusate Sodium 100 MG CAPSULE PO ×2 (08:38→21:51)
[2023-07-28] MEDS: Cyclobenzaprine HCl 5 MG TABLET PO (08:45)
--- NOTE | 2023-07-28 10:41 | HO.PSYCHPN ---
Subjective Subjective Date of Service: 07/28/23 Reason For Visit: Major Depressive D/O, Borderline Personality D/O Subjective Notes: Conditional Voluntary and 3 Day Interim History: pt still waking in middle of night; no restless legs. reports still anxious; trying to keep busy and use coping skills; Mood a little better and no SI. Medication Compliance: Yes Side effects from medications: No Attending Groups: Yes Review of Systems Acute medical concerns: No Medical Review of Systems: unchanged Review of Systems Review of Systems Chronic left hip pain Musculoskeletal: Reports abnormal gait, Reports back pain and Reports other Reports abnormal gait and Reports behavioral changes Psychiatric: Reports anxiety, Reports behavioral changes, Reports irritability, Reports anhedonia, Reports mood swings and Reports suicidal ideation Mental Status Exam Mental Status Exam Narrative: Pt is alert and oriented; behavior is cooperative, friendly and calm; patient is in minimal to moderate distress due to chronic hip pain; dressed in casual attire and fair hygiene; mood fair; eye contact appropriate; Speech is normal rate, volume and prosody and not pressured; no psychomotor agitation/retardation present; thought process is organized and goal directed; Thought content is on tx, relationships; otherwise pertinent to relevant topics and without any delusional content, paranoid ideation or grandiosity; intermittent passive SI which is chronic; no HI. There is no evidence of perceptual disturbance. Patients insight and judgment appear intact. Patient Appearance: Well Grooomed (in hospital garb) Patient Orientation: Person, Place, Time and Situation Level of Consciousness: Alert Patient Behavior: Appropriate Mood Description: Calm Affect Description: Cheerful Patient Cognition Impaired: No Ability to Follow Directions: Good Speech Pattern: Clear Memory Description: Intact Diagnostics Vital Signs (24Hr): Vital Signs - 24 hr 07/27/23 20:24 07/28/23 08:35 Temperature 97.2 F 96.7 F L Pulse Rate 55 60 Respiratory Rate 18 18 Blood Pressure 102/63 111/65 Pulse Oximetry 98 97 Oxygen Delivery Method Room Air Room Air BMI result Body Mass Index 27.5 Labs 07/20/23 08:04 Medications Medications Current Medications Acetaminophen (Acetaminophen 325 Mg Tablet) 650 mg PO Q6H PRN PRN Reason: Headache/Pain Mild Scale (1-3) Al Hydroxide/Mg Hydroxide (Magnesium Hydrox/Alum Hydrox 30 Ml Oral.Susp) 30 ml PO Q6H PRN PRN Reason: Heartburn/Nausea Last Admin: 07/21/23 14:43 Dose: 30 ml Clonazepam (Clonazepam 0.5 Mg Tablet) 0.25 mg PO BID PRN PRN Reason: Anxiety/insomnia Clonidine HCl (Clonidine Hcl 0.1 Mg Tablet) 0.1 mg PO Q4H PRN; Protocol PRN Reason: anxiety Clonidine HCl (Clonidine Hcl 0.1 Mg Tablet) 0.05 mg PO BEDTIME MIMI; Protocol Last Admin: 07/27/23 21:44 Dose: 0.05 mg Cyclobenzaprine HCl (Cyclobenzaprine Hcl 5 Mg Tablet) 5 mg PO TID PRN PRN Reason: Hip pain Last Admin: 07/28/23 08:45 Dose: 5 mg Docusate Sodium (Docusate Sodium 100 Mg Capsule) 100 mg PO BID MIMI Last Admin: 07/28/23 08:38 Dose: 100 mg Duloxetine HCl (Duloxetine Hcl 30 Mg Capsule.Dr) 30 mg PO DAILY MIMI Last Admin: 07/28/23 08:38 Dose: 30 mg Magnesium Hydroxide (Milk Of Magnesia 30 Ml Oral.Susp) 30 ml PO DAILY PRN PRN Reason: Constipation Last Admin: 07/22/23 08:57 Dose: 30 ml Naproxen (Naproxen 500 Mg Tablet) 500 mg PO BIDWM PRN PRN Reason: Pain, Moderate(Pain Scale 4-6) Stop: 08/03/23 15:44 Last Admin: 07/23/23 08:30 Dose: 500 mg Ropinirole HCl (Ropinirole Hcl 0.25 Mg Tablet) 0.25 mg PO BEDTIME MIMI Last Admin: 07/27/23 21:45 Dose: 0.25 mg Trazodone HCl (Trazodone Hcl 50 Mg Tablet) 50 mg PO BEDTIME MIMI Last Admin: 07/27/23 21:45 Dose: 50 mg Allergies Allergies Allergy/AdvReac Type Severity Reaction Status Date / Time Sulfa (Sulfonamide Allergy Intermediate Unknown Verified 07/20/23 00:30 Antibiotics) imipramine Allergy Unknown Verified 07/20/23 00:32 lithium AdvReac Mild Unknown Verified 07/20/23 00:32 Assessment & Plan Assessment & Plan (1) Recurrent major depression: Qualifiers: Active/Remission status: currently active Major depression episode severity: severe Psychotic features: without psychotic features Qualified Code(s): F33.2 - Major depressive disorder, recurrent severe without psychotic features Status: Acute Code(s): F33.9 - Major depressive disorder, recurrent, unspecified Assessment and Plan: cymbalta just started, increase as tolerated (2) PTSD (post-traumatic stress disorder): Status: Acute Code(s): F43.10 - Post-traumatic stress disorder, unspecified Assessment and Plan: monitor for symptoms (3) Borderline personality disorder: Status: Acute Code(s): F60.3 - Borderline personality disorder Assessment and Plan: Clarify expectations, clear boundaries and follow through on plans. (4) Left hip pain: Status: Acute Code(s): M25.552 - Pain in left hip Assessment and Plan: Flexeril and tylenol, consider lidocaine patch (5) Medical clearance for psychiatric admission: Status: Acute Code(s): Z00.8 - Encounter for other general examination Plan 77 yo female, history of PTSD, Recurrent Major Depression, Borderline Personality, L Hip Pain, sent in transfer from [facility] for evaluation and management of suicidality, depression and pain. Hospital course: 07/22: Add colace. Cymbalta just started, increase as tolerated 6Discussed history in detail, including recent events and patient's mood and chronic SI. She reports that she deals with suicidal ideation every day and has done so for over a decade. She says sometimes the SI gets more intense than others but this is what is like for her at baseline, despite many medication trials and it something that she has learned to live with and deal with on her own. She reports that she was really upset with herself for something she said to her daughter but denies that she was ever getting close to actually harming herself and that comments made in the emergency room were misconstrued. -Patient discussed in detail her historically troubled relationship with her daughter. It remains difficult for her to accept that they have struggled to get along for such a long time but she says mostly she is growing to understand that that is just how some relationships go. She understands that it would cause tremendous emotional pain for her daughter, son were she to end her life and knows that despite chronic SI, she will not take her own life. Patient also shared about some of her other ways she is cope with her own stress, often living alone; she has hiked the [facility] [place] by herself, lived in [place] by herself, and until recently [place] for motorcycle and is able to disassemble and repair a motorcycle engine. 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 Patient is considering getting a camper and hitting it to her car and traveling the [place], camping as she goes. -Patient discussed history of struggles with her chronic back pain. She had back/spinal surgery this past February which relieved lower back pain, however subsequently she developed bilateral hip pain which has been debilitating. There has been a back and forth between her PCP and a initial spinal surgeon; finally she got appointment with in Orthopedic Dr. for July 31. Patient says she feels that she can endure this chronic pain, something she has been dealing with for months, until this appointment. She is getting some relief from Flexeril and naproxen which were added this admission. Patient is on a 3 day notice. Initially she wanted to discharge but after discussion, feels it would be helpful to stay and see if mortgage loan underwriter can help with medications that could help sleep. Discussed list of medications the patient has tried and they are numerous. Says her outpatient provider will not give her any benzodiazepines because of her age. Patient denies any history at all of drug or alcohol abuse. 07/24Patient reports not sleeping that well despite trazodone; agrees to go back down to 50. Mood remains depressed but no SI. Anxiety a little better. Patient is considering retracting her 3 day notice, feeling there is benefit to remaining on the unit, getting help with sleep, getting time to process emotions. 07/25 Patient reports poor sleep and complains of long history of restless leg which has been interfering with sleep for while. However somewhat of improved mood. [employer] discussed ropinirole as a medication, going over risks/side effect profile which patient understood and agreed to continue (Also discussed combined risks/side effects of all medication regimen including that several of her medications can cause hypotension). Patient agrees to increase clonidine as a p.r.n. for anxiety because she thinks that the 0.05 mg May have helped a little bit and did not affect blood pressure or heart rate and she is hoping higher dose could be more beneficial. Also discussed history of nightmares that she often wakes up agitated. Discussed more of her history and relationships with her kids. 07/26 adding clonazpem 0.25mg (discussed risks) reviewed bp/HR which remain WNL 07/27 No restless leg last night, hopefully due to ropinirole; patient not sure how low-dose clonazepam helped last night but reviewed PRNs for anxiety, clonidine/clonazepam and patient will see how they feel. Patient has had numerous medication trials over the years, including SSRIs/SNRIs, TCAs, mood stabilizers including lithium/lamictal, several antipsychotics... Therapy... (TMS??) None of which have given much benefit. She reports that Ativan did help; no drug or alcohol history at all. [employer] again discussed risks/side-effects of benzo's including risks associated w/ her demographic which patient fully understands feels that potential benefits outweigh these risks. Given that patient has had numerous medication trials with limited affect, she is in chronic pain, without any history of substance abuse, cognitively intact and long history of numerous accomplishments while living independently, mortgage loan underwriter agrees that low-dose benzodiazepine is of low risk and at this time the potential benefit of reducing her chronic anxiety/ruminations outweighs the potential risk. Will increase Cymbalta to 30 mg not some much for depression/anxiety but for neuropathic pain. She is falling asleep better on current medication regimen. 07/28/23 contiue current tx plan formulation: Patient with long history of refractory depression; per history, symptoms are complicated by personality disorder, PTSD. Patient has chronic daily SI and has for over a decade; has history psychiatric hospitalizations but not for years. Patient reports she has learned to cope with her chronic daily SI and would never hurt herself, citing love for her children as a protective factor. Patient remains stable for discharge however there is significant therapeutic benefit to having a remain on the unit and help her with both anxiety and insomnia which could both significantly improved mood overall. Plan: CV (retracted 3 day) Added clonazepam 0.25 mg b.i.d. p.r.n. for anxiety or insomnia; will increase to 0.5 mg if clinically indicated Continue ropinirole 0.25 mg q.h.s. for restless leg Increase clonidine to 0.1 mg q.4 PRN for daytime anxiety/insomnia Schedule clonidine 0.05 mg q.h.s. for insomnia; patient reports thinking too much while trying to relax; will keep this at lower dose to avoid hypotension given combine potential risks of medication regimen Increase Cymbalta 30 mg daily Continue trazodone 50 mg q.h.s. with additional p.r.n. Continue naproxen p.r.n. Continue Flexeril 5 mg p.r.n.; continue at current dose which she is finding helpful enough and does not want to risk side effect of raising dose cancel consults for otho/neuro; here in the hospital ortho and neuro are unable to see patient and recommend following up with outpatient provider. Pain is improved with Flexeril. While pain remains she reports tolerable and that she can endure it until her orthopedic appointment on 07/31. Reason for continued inpatient stay Substantial Risk for: harm to self, inability to function and rapid decompensation Time Spent With Patient Time: Total time managing care of this patient today ____ minutes.
[2023-07-28 18:15] VITALS: BP 104/72; PULSE 77; RESP 16; TEMP 36.5; O2SAT 97
[2023-07-28] MEDS: traZODone HCL 50 MG TABLET PO (21:51)
[2023-07-28] MEDS: rOPINIRole HCL 0.25 MG TABLET PO (21:51)
[2023-07-28] MEDS: cloNIDine HCL 0.1 MG TABLET 0.05 MG PO (21:51)
[2023-07-29 08:24] VITALS: BP 119/73; PULSE 63; TEMP 36.3; O2SAT 100
[2023-07-29] MEDS: Docusate Sodium 100 MG CAPSULE PO (08:26)
[2023-07-29] MEDS: Milk of Magnesia 30 ML ORAL.SUSP PO (08:32)
[2023-07-29 18:00] VITALS: BP 129/83; PULSE 101; TEMP 37.3
--- NOTE | 2023-07-29 19:53 | HO.PSYCHPN ---
Subjective Subjective Date of Service: 07/29/23 Reason For Visit: Major Depressive D/O, Borderline Personality D/O Subjective Notes: Conditional Voluntary and 3 Day Interim History: pt sleeping during the day; still waking in middle of night; no restless legs. refused cymbalta today saying she didn't need it. reports still anxious; trying to keep busy and use coping skills; Mood a little better and no SI. On a 3 day notice Medication Compliance: Intermittent Side effects from medications: No Review of Systems Acute medical concerns: No Medical Review of Systems: unchanged Review of Systems Review of Systems Chronic left hip pain Musculoskeletal: Reports abnormal gait, Reports back pain and Reports other Reports abnormal gait and Reports behavioral changes Psychiatric: Reports anxiety, Reports behavioral changes, Reports irritability, Reports anhedonia, Reports mood swings and Reports suicidal ideation Mental Status Exam Mental Status Exam Narrative: Pt is alert and oriented; behavior is cooperative, patient is in minimal to moderate distress due to chronic hip pain; dressed in casual attire and fair hygiene; mood anxious and irritable; eye contact appropriate; Speech is normal rate, volume and prosody and not pressured; no psychomotor agitation/retardation present; thought process is organized and goal directed; Thought content is on tx, relationships; otherwise pertinent to relevant topics and without any delusional content, paranoid ideation or grandiosity; intermittent passive SI which is chronic; no HI. There is no evidence of perceptual disturbance. Patients insight and judgment appear intact. Patient Appearance: Well Grooomed (in hospital garb) Patient Orientation: Person, Place, Time and Situation Level of Consciousness: Alert Patient Behavior: Appropriate Mood Description: Calm Affect Description: Cheerful Patient Cognition Impaired: No Ability to Follow Directions: Good Speech Pattern: Clear Memory Description: Intact Diagnostics Vital Signs (24Hr): Vital Signs - 24 hr 07/29/23 08:24 07/29/23 18:00 Temperature 97.4 F 99.2 F Pulse Rate 63 101 H Blood Pressure 119/73 129/83 Pulse Oximetry 100 Oxygen Delivery Method Room Air BMI result Body Mass Index 27.5 Labs 07/20/23 08:04 Medications Medications Current Medications Acetaminophen (Acetaminophen 325 Mg Tablet) 650 mg PO Q6H PRN PRN Reason: Headache/Pain Mild Scale (1-3) Al Hydroxide/Mg Hydroxide (Magnesium Hydrox/Alum Hydrox 30 Ml Oral.Susp) 30 ml PO Q6H PRN PRN Reason: Heartburn/Nausea Last Admin: 07/21/23 14:43 Dose: 30 ml Clonazepam (Clonazepam 0.5 Mg Tablet) 0.25 mg PO BID PRN PRN Reason: Anxiety/insomnia Clonidine HCl (Clonidine Hcl 0.1 Mg Tablet) 0.1 mg PO Q4H PRN; Protocol PRN Reason: anxiety Clonidine HCl (Clonidine Hcl 0.1 Mg Tablet) 0.05 mg PO BEDTIME MIMI; Protocol Last Admin: 07/28/23 21:51 Dose: 0.05 mg Cyclobenzaprine HCl (Cyclobenzaprine Hcl 5 Mg Tablet) 5 mg PO TID PRN PRN Reason: Hip pain Last Admin: 07/28/23 08:45 Dose: 5 mg Docusate Sodium (Docusate Sodium 100 Mg Capsule) 100 mg PO BID MIMI Last Admin: 07/29/23 08:26 Dose: 100 mg Duloxetine HCl (Duloxetine Hcl 30 Mg Capsule.Dr) 30 mg PO DAILY MIMI Last Admin: 07/29/23 08:26 Dose: Not Given Magnesium Hydroxide (Milk Of Magnesia 30 Ml Oral.Susp) 30 ml PO DAILY PRN PRN Reason: Constipation Last Admin: 07/29/23 08:32 Dose: 30 ml Naproxen (Naproxen 500 Mg Tablet) 500 mg PO BIDWM PRN PRN Reason: Pain, Moderate(Pain Scale 4-6) Stop: 08/03/23 15:44 Last Admin: 07/23/23 08:30 Dose: 500 mg Ropinirole HCl (Ropinirole Hcl 0.25 Mg Tablet) 0.25 mg PO BEDTIME MIMI Last Admin: 07/28/23 21:51 Dose: 0.25 mg Trazodone HCl (Trazodone Hcl 50 Mg Tablet) 50 mg PO BEDTIME MIMI Last Admin: 07/28/23 21:51 Dose: 50 mg Allergies Allergies Allergy/AdvReac Type Severity Reaction Status Date / Time Sulfa (Sulfonamide Allergy Intermediate Unknown Verified 07/20/23 00:30 Antibiotics) imipramine Allergy Unknown Verified 07/20/23 00:32 lithium AdvReac Mild Unknown Verified 07/20/23 00:32 Assessment & Plan Assessment & Plan (1) Recurrent major depression: Qualifiers: Active/Remission status: currently active Major depression episode severity: severe Psychotic features: without psychotic features Qualified Code(s): F33.2 - Major depressive disorder, recurrent severe without psychotic features Status: Acute Code(s): F33.9 - Major depressive disorder, recurrent, unspecified Assessment and Plan: cymbalta just started, increase as tolerated (2) PTSD (post-traumatic stress disorder): Status: Acute Code(s): F43.10 - Post-traumatic stress disorder, unspecified Assessment and Plan: monitor for symptoms (3) Borderline personality disorder: Status: Acute Code(s): F60.3 - Borderline personality disorder Assessment and Plan: Clarify expectations, clear boundaries and follow through on plans. (4) Left hip pain: Status: Acute Code(s): M25.552 - Pain in left hip Assessment and Plan: Flexeril and tylenol, consider lidocaine patch (5) Medical clearance for psychiatric admission: Status: Acute Code(s): Z00.8 - Encounter for other general examination Plan 77 yo female, history of PTSD, Recurrent Major Depression, Borderline Personality, L Hip Pain, sent in transfer from [facility] for evaluation and management of suicidality, depression and pain. Hospital course: 07/22: Add colace. Cymbalta just started, increase as tolerated 6Discussed history in detail, including recent events and patient's mood and chronic SI. She reports that she deals with suicidal ideation every day and has done so for over a decade. She says sometimes the SI gets more intense than others but this is what is like for her at baseline, despite many medication trials and it something that she has learned to live with and deal with on her own. She reports that she was really upset with herself for something she said to her daughter but denies that she was ever getting close to actually harming herself and that comments made in the emergency room were misconstrued. -Patient discussed in detail her historically troubled relationship with her daughter. It remains difficult for her to accept that they have struggled to get along for such a long time but she says mostly she is growing to understand that that is just how some relationships go. She understands that it would cause tremendous emotional pain for her daughter, son were she to end her life and knows that despite chronic SI, she will not take her own life. Patient also shared about some of her other ways she is cope with her own stress, often living alone; [place], lived in [place] by herself, and until recently [place] for motorcycle and is able to disassemble and repair a motorcycle engine. 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 Patient is considering getting a camper and hitting it to her car and traveling the [place], camping as she goes. -Patient discussed history of struggles with her chronic back pain. She had back/spinal surgery this past February which relieved lower back pain, however subsequently she developed bilateral hip pain which has been debilitating. There has been a back and forth between her PCP and a initial spinal surgeon; finally she got appointment with in [facility]opedic [facility] for July 31. Patient says she feels that she can endure this chronic pain, something she has been dealing with for months, until this appointment. She is getting some relief from Flexeril and naproxen which were added this admission. Patient is on a 3 day notice. Initially she wanted to discharge but after discussion, feels it would be helpful to stay and see if automobile and property underwriter can help with medications that could help sleep. Discussed list of medications the patient has tried and they are numerous. Says her outpatient provider will not give her any benzodiazepines because of her age. Patient denies any history at all of drug or alcohol abuse. 07/24Patient reports not sleeping that well despite trazodone; agrees to go back down to 50. Mood remains depressed but no SI. Anxiety a little better. Patient is considering retracting her 3 day notice, feeling there is benefit to remaining on the unit, getting help with sleep, getting time to process emotions. 07/25 Patient reports poor sleep and complains of long history of restless leg which has been interfering with sleep for while. However somewhat of improved mood. Director Of Hemophilia discussed ropinirole as a medication, going over risks/side effect profile which patient understood and agreed to continue (Also discussed combined risks/side effects of all medication regimen including that several of her medications can cause hypotension). Patient agrees to increase clonidine as a p.r.n. for anxiety because she thinks that the 0.05 mg May have helped a little bit and did not affect blood pressure or heart rate and she is hoping higher dose could be more beneficial. Also discussed history of nightmares that she often wakes up agitated. Discussed more of her history and relationships with her kids. 07/26 adding clonazpem 0.25mg (discussed risks) reviewed bp/HR which remain WNL 07/27 No restless leg last night, hopefully due to ropinirole; patient not sure how low-dose clonazepam helped last night but reviewed PRNs for anxiety, clonidine/clonazepam and patient will see how they feel. Patient has had numerous medication trials over the years, including SSRIs/SNRIs, TCAs, mood stabilizers including lithium/lamictal, several antipsychotics... Therapy... (TMS??) None of which have given much benefit. She reports that Ativan did help; no drug or alcohol history at all. Director Of Hemophilia again discussed risks/side-effects of benzo's including risks associated w/ her demographic which patient fully understands feels that potential benefits outweigh these risks. Given that patient has had numerous medication trials with limited affect, she is in chronic pain, without any history of substance abuse, cognitively intact and long history of numerous accomplishments while living independently, automobile and property underwriter agrees that low-dose benzodiazepine is of low risk and at this time the potential benefit of reducing her chronic anxiety/ruminations outweighs the potential risk. Will increase Cymbalta to 30 mg not some much for depression/anxiety but for neuropathic pain. She is falling asleep better on current medication regimen. 07/28/23 contiue current tx plan 07/29/23 continue tx plan formulation: Patient with long history of refractory depression; per history, symptoms are complicated by personality disorder, PTSD. Patient has chronic daily SI and has for over a decade; has history psychiatric hospitalizations but not for years. Patient reports she has learned to cope with her chronic daily SI and would never hurt herself, citing love for her children as a protective factor. Patient remains stable for discharge however there is significant therapeutic benefit to having a remain on the unit and help her with both anxiety and insomnia which could both significantly improved mood overall. Plan: CV (retracted 3 day) Added clonazepam 0.25 mg b.i.d. p.r.n. for anxiety or insomnia; will increase to 0.5 mg if clinically indicated Continue ropinirole 0.25 mg q.h.s. for restless leg Increase clonidine to 0.1 mg q.4 PRN for daytime anxiety/insomnia Schedule clonidine 0.05 mg q.h.s. for insomnia; patient reports thinking too much while trying to relax; will keep this at lower dose to avoid hypotension given combine potential risks of medication regimen Increase Cymbalta 30 mg daily Continue trazodone 50 mg q.h.s. with additional p.r.n. Continue naproxen p.r.n. Continue Flexeril 5 mg p.r.n.; continue at current dose which she is finding helpful enough and does not want to risk side effect of raising dose cancel consults for otho/neuro; here in the hospital ortho and neuro are unable to see patient and recommend following up with outpatient provider. Pain is improved with Flexeril. While pain remains she reports tolerable and that she can endure it until her orthopedic appointment on 07/31. Reason for continued inpatient stay Substantial Risk for: harm to self, inability to function and rapid decompensation Time Spent With Patient Time: Total time managing care of this patient today ____ minutes.
[2023-07-29] MEDS: rOPINIRole HCL 0.25 MG TABLET PO (22:47)
[2023-07-30 08:00] VITALS: BP 117/64; PULSE 66; RESP 18; TEMP 35.9; O2SAT 99
--- NOTE | 2023-07-30 09:25 | PM.PSYDC ---
DS: Providers Provider Date of Service: 07/30/23 Date of admission: 07/19/23 20:38 Date of discharge: 07/30/23 Primary care physician: Unknown Physician Consults: 07/19/23 20:52 Consult to Hospitalist Routine Comment: Consulting Provider: Hospitalist Reason For Exam: medical H&P DS: Diagnosis Discharge Diagnosis (1) Recurrent major depression: Status: Acute (2) PTSD (post-traumatic stress disorder): Status: Acute (3) Borderline personality disorder: Status: Acute (4) Left hip pain: Status: Acute (5) Medical clearance for psychiatric admission: Status: Acute Mental Status Exam Mental Status Exam Narrative: Pt is alert and oriented; behavior is cooperative, friendly and calm; patient is in minimal to moderate distress due to chronic hip pain; dressed in casual attire with combed hair and adequate hygiene; mood is described as excieted and affect congruent, bright; eye contact appropriate; Speech is normal rate, volume and prosody and not pressured; no psychomotor agitation/retardation present; thought process is organized and goal directed; Thought content is on tx, relationships; otherwise pertinent to relevant topics and without any delusional content, paranoid ideations or grandiosity; no SI; no HI. There is no evidence of perceptual disturbance. Patients insight and judgment are fair. DS: Summary Hospital Course Hospital Course: 77 yo female, history of PTSD, Recurrent Major Depression, Borderline Personality, L Hip Pain, sent in transfer from [facility] for evaluation and management of suicidality, depression and pain. Patient has long history of refractory depression; per history, symptoms are complicated by personality disorder, PTSD. Says she has daily passive SI but denies intent or plans and says her comments in the ED were taken out of context. History of psychiatric hospitalizations, last 1 was years ago. Numerous medication trials without benefit. Hospital course: Depressed, irritable on admission; complaining of chronic bilateral hip pain which started this past summer after back surgery. Patient was started on Flexeril and naproxen p.r.n. which helped with pain and restarted on Cymbalta to help with both anxiety and chronic pain. As mentioned patient was irritable on admission however she acclimated and discussed in detail both recent events and history of her moods and chronic SI. She reports that she deals with suicidal ideation every day and has done so for over a decade. She says sometimes the SI gets more intense then others but this is still normal for her baseline. She has had many medication trials with minimal to no benefit and thus chronic SI is something she has learned to live and deal with on her own. Patient reports that despite daily thoughts about being , at this point in her life she would never actually harm herself. Last week she explained feeling really upset with herself for something she said to her daughter but denies that she was ever getting close to actually harming herself and that comments made in the emergency room were misconstrued. -Patient discussed in detail her historically troubled relationship with her daughter. It remains difficult for her to accept that they have struggled to get along for such a long time but she says mostly she is growing to understand that that is just how some relationships go. She understands that it would cause tremendous emotional pain for her daughter, son were she to end her life and knows that despite chronic SI, she will not take her own life. -Patient also shared about some of her other ways she is cope with her own stress, often living alone; [facility] [facility], lived in [place] by herself, and until recently [place] for motorcycle and is able to disassemble and repair a motorcycle engine. 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 She remains future oriented and is currently considering getting a camper and hitting it to her car and traveling the [place], camping as she goes. Patient discussed history of struggles with her chronic back pain. She had back/spinal surgery this past February which relieved lower back pain, however subsequently she developed bilateral hip pain which has been debilitating. There has been a back and forth between her PCP and a initial spinal surgeon; finally she got appointment with in [facility]opedic [facility] for July 31. Patient says she feels that she can endure this chronic pain, something she has been dealing with for months, until this appointment. Initially she wanted to discharge but changed her mind, retracted 3 day notice and decided to remain on the unit to see if she could get help with her insomnia and daytime anxiety. No history of alcohol or drug abuse; outpatient provider will not prescribe Ativan given her age. Patient tried several PRNs, including clonidine and Trazodone, but was ambivalent whether or not they were helpful. Railroad Firer/Fireman added low-dose clonazepam after patient reported some benefit from a 1 time dose the day before. Ultimately patient never asked for the p.r.n. so it was not continued. She did however benefit from ropinirole, citing resolution of a long history of restless leg syndrome and so this medication was continued; she also decided to continue with clonidine 0.05 mg for now. Patient was ambivalent about continuing with Cymbalta but ultimately decided to give it a chance to see if it could also help with pain. She wanted to get off naproxen and other than continuing with p.r.n. Flexeril, planned to wait to discuss pain medication management with her upcoming outpatient orthopedic appointment on 07/31. Patient felt ready for discharge. She remained in good behavioral and impulse control throughout her time in the unit; she was appropriate with peers and staff, getting along well with others. Although historically patient has chronic daily SI, she denied any SI throughout her time in the unit and her mood improved. 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 Patient denied any SI; was future oriented and hopeful about upcoming orthopedic appointment. She was not in imminent risk for harm to self or others and her request for discharge honored. Time spent discussing smoking cessation with patient: 3 to 10 minutes Status at Discharge Functional status at discharge: independent ambulation Overall status at discharge: patient is back to baseline Time Spent with Patient Time attestation: Total time managing care of this patient today ____ minutes. Time spent: Greater than 30 minutes Discharge Plan Discharge Anticipated Discharge Date/Time: 07/30/23 11:00 Patient Disposition: Home, Self-Care Discharge Diagnosis: MDD, recurrent, moderate Referrals: Estefany Miranda [Other] - 08/03/23 1:00 pm [facility] [Other] - 08/02/23 2:00 pm Discharge Medications: New cyclobenzaprine 5 mg Tablet 5 mg PO TID PRN (Reason: Hip pain) 30 Days Qty: 90 0RF clonidine HCl 0.1 mg Tablet 0.05 mg PO BID PRN (Reason: Anxiety or Insomnia) 30 Days Qty: 30 0RF Protocol: Hold for SBP< HOLD for SBP < : 90 duloxetine 30 mg Capsule,Delayed Release(Dr/Ec) 30 mg PO DAILY 30 Days Qty: 30 0RF ropinirole 0.25 mg Tablet 0.25 mg PO BEDTIME 30 Days Qty: 30 0RF docusate sodium 100 mg Capsule 100 mg PO BID PRN (Reason: constipation) Qty: 0 0RF Discharge Orders: Discharge Order (Routine); Ordered 07/30/23 Ordered By: Len Harris Diet: Regular diet Activity on Discharge: As tolerated Stand Alone Forms: Patient Portal Discharge page, Community Support Care Plan Goals: Maintain mood and safe behaviors Take medications as prescribed Practice coping skills Continue with outpatient providers and reach out to them as needed Health Concerns: Mood stability and behaviors Chronic Back/hip pain Plan of Treatment: Follow up with your PCP, psychiatric provider and other outpatient providers regarding above concerns Take medications as prescribed: Ropinirole: for restless leg Flexeril: for hip pain Clonidine: for anxiety or insomnia Cymbalta: for both anxiety and to help with pain Assessment: Risk assessment at time of discharge:? Patient was interviewed prior to discharge and found to be fully oriented and without any SI or HI. Patient has improved insight and judgment and wants to continue treatment. Patient is not in imminent risk of harm to self or others and has a safety plan that includes presenting to the closest ER or calling 911 if feeling unsafe.? Patient has been observed closely by nursing and unit staff throughout admission; patient has not engaged in any behaviors that suggest dangerousness to self or others and has demonstrated appropriate behaviors and impulse control Discharge Date/Time: 07/30/23 11:55
== END 2023-07-30 11:55 | disposition home or self-care (01) | DRG 885 ==
PROVIDERS: Social Worker; Admitting Provider Psychiatry & Neurology Psychiatry; Visit Provider Psychiatry & Neurology Psychiatry
DX: F33.1 Major depressive disorder, recurrent, moderate (principal); R45.851 Suicidal ideations; F60.3 Borderline personality disorder; M25.552 Pain in left hip; F43.10 Post-traumatic stress disorder, unspecified; G20.C Parkinsonism, unspecified; Z79.899 Other long term (current) drug therapy
CPT/HCPCS: 36415; 80053; 80061; 82607; 82746; 83036; 84443

== ENCOUNTER → 2023-07-19 20:38 | Outpatient (BNV) | payer MEDICARE, SELFPAY | PROVIDERS: Admitting Provider Psychiatry & Neurology Psychiatry; Visit Provider Student in an Organized Health Care Education/Training Program | DX: Z02.2 Encounter for examination for admission to residential institution (principal) | CPT/HCPCS: 99429 ==

== ENCOUNTER → 2023-07-19 20:38 | Outpatient (BNV) | payer MEDICARE, SELFPAY | PROVIDERS: Admitting Provider Psychiatry & Neurology Psychiatry; Visit Provider Psychiatry & Neurology Psychiatry | DX: F60.3 Borderline personality disorder (principal); F33.2 Major depressive disorder, recurrent severe without psychotic features; F43.11 Post-traumatic stress disorder, acute; M25.552 Pain in left hip; Z00.8 Encounter for other general examination | CPT/HCPCS: 90792; 99231; 99232; 99239; 99499 ==